=== PATIENT | female | born 1960 | race Two or more races ===

== ENCOUNTER 2017-03-03 11:14 | Inpatient (IN) | payer SELFPAY ==
--- NOTE | 2017-03-03 11:58 | ER Document Report ---
ED Respiratory Problem - General Chief Complaint: Productive Cough Stated Complaint: COUGH Time Seen by Provider: 03/03/17 11:43 Mode of Arrival: Ambulatory Information source: Patient Notes: 56-year-old female presents to ED for cough congestion cold times a week with pain due to coughing. She is alert and oriented speaks in full sentences with respirations even and unlabored. TRAVEL OUTSIDE OF THE [place] IN LAST 30 DAYS: No - HPI Patient complains to provider of: Cough Onset: Last week Duration: Continuous Initiating Event: URI Quality of pain: Achy Severity: Severe Pain Level: 5 Cough: Productive Sputum amount: Small Sputum color: Red Specks Sputum consistency: Mucoid Associated symptoms: Chest pain/discomfort, Congestion, Cough, Fever, PND, Runny nose, Sinus pain/pressure Similar symptoms previously: Yes Recently seen / treated by doctor: No - Related Data Allergies/Adverse Reactions: No Known Allergies Allergy (Verified 03/03/17 11:30) Past Medical History - General Information source: Patient - Social History Smoking Status: Never Smoker Cigarette use (# per day): No Chew tobacco use (# tins/day): No Smoking Education Provided: No Frequency of alcohol use: None Drug Abuse: None Lives with: Family Family History: CAD, Hyperlipidemia, Hypertension Patient has suicidal ideation: No Patient has homicidal ideation: No - Past Medical History Cardiac Medical History: Reports: Hx Hypercholesterolemia Pulmonary Medical History: Reports: None EENT Medical History: Reports: None Neurological Medical History: Reports: None Endocrine Medical History: Reports: None Renal/ Medical History: Reports: Hx Ectopic Malignancy Medical History: Reports: None GI Medical History: Reports: None Musculoskeltal Medical History: Reports None Skin Medical History: Reports None Psychiatric Medical History: Reports: None Traumatic Medical History: Reports: None Past Surgical History: Reports: Hx Section - x1, Hx Gynecologic Surgery - Removal of ectopic Review of Systems - Review of Systems Constitutional: Recent illness EENT: No symptoms reported, Nose discharge, Sinus pressure, Sinus discharge Cardiovascular: No symptoms reported Respiratory: No symptoms reported Gastrointestinal: No symptoms reported Genitourinary: No symptoms reported Female Genitourinary: No symptoms reported Musculoskeletal: No symptoms reported Skin: No symptoms reported Hematologic/Lymphatic: No symptoms reported Neurological/Psychological: No symptoms reported -: Yes All other systems reviewed and negative Physical Exam - Vital signs Vitals: Temp Pulse Resp BP Pulse Ox 97.9 F 106 H 16 100/64 95 03/03/17 11:27 03/03/17 11:27 03/03/17 11:27 03/03/17 11:27 03/03/17 11:27 Interpretation: Normal - General General appearance: Appears well, Alert - HEENT Head: Normocephalic, Atraumatic Eyes: Normal Pupils: PERRL Ears: Normal External canal: Normal Tympanic membrane: Normal Sinus: Frontal, Mastoid, Maxillary, Tenderness Nasal: Purulent discharge, Swelling Mouth/Lips: Normal Mucous membranes: Normal Pharynx: Post nasal drainage Neck: Normal - Respiratory Respiratory status: No respiratory distress Chest status: Tender, Pain with cough Breath sounds: Productive cough. No: Rales, Rhonchi, Stridor, Wheezing Chest palpation: Normal - Cardiovascular Rhythm: Regular Heart sounds: Normal auscultation Murmur: No - Abdominal Inspection: Normal Distension: No distension Bowel sounds: Normal Tenderness: Nontender Organomegaly: No organomegaly - Back Back: Normal, Nontender - Extremities General upper extremity: Normal inspection, Nontender, Normal color, Normal ROM , Normal temperature General lower extremity: Normal inspection, Nontender, Normal color, Normal ROM , Normal temperature, Normal weight bearing. No: Aileen's sign - Neurological Neuro grossly intact: Yes Cognition: Normal Orientation: AAOx4 Oxford Coma Scale Eye Opening: Spontaneous Oxford Coma Scale Verbal: Oriented Terrance Coma Scale Motor: Obeys Commands Terrance Coma Scale Total: 15 Speech: Normal Motor strength normal: LUE, RUE, LLE, RLE Sensory: Normal - Psychological Associated symptoms: Normal affect, Normal mood - Skin Skin Temperature: Warm Skin Moisture: Dry Skin Color: Normal Course - Vital Signs Vital signs: Temp Pulse Resp BP Pulse Ox 97.6 F 102 H 18 96/59 L 95 03/03/17 20:41 03/03/17 20:41 03/03/17 20:41 03/03/17 20:41 03/03/17 20:36 - Laboratory Result Diagrams: 03/03/17 13:19 03/03/17 13:19 Laboratory results interpreted by me: 03/03/17 03/03/17 13:19 13:19 WBC 28.2 H Hgb 11.4 L Hct 34.2 L Seg Neuts % (Manual) 83 H Band Neutrophils % 7 H Lymphocytes % (Manual) 4 L Abs Neuts (Manual) 25.4 H BUN 45 H Creatinine 1.89 H Est GFR ( Amer) 33 L Est GFR (Non-Af Amer) 27 L - Diagnostic Test Radiology reviewed: Image reviewed, Reports reviewed Discharge - Discharge Clinical Impression: Renal insufficiency Pneumonia Qualifiers: Pneumonia type: due to unspecified organism Laterality: left Lung location: upper lobe of lung Qualified Code(s): J18.1 - Lobar pneumonia, unspecified organism Disposition: ADMITTED INPATIENT Admitting Provider: Mikaelaist - [facility] Unit Admitted: Medical Floor - isolation TB
[2017-03-03] MEDS ORDERED: PSEUDOEPHEDRINE HCL 30 MG TABLET PO ONE (12:03)
[2017-03-03] MEDS ORDERED: LORATADINE 10 MG TABLET PO ONE (12:03)
[2017-03-03] MEDS ORDERED: IBUPROFEN 600 MG TABLET PO ONE (12:03)
[2017-03-03] MEDS ORDERED: GUAIFENESIN 600 MG TABLET.SA PO ONE (12:03)
--- NOTE | 2017-03-03 12:57 | RADIOLOGY REPORT (SQ) ---
EXAM DESCRIPTION: CHEST PA/LAT COMPLETED DATE/TIME: 03/03/2017 12:30 pm REASON FOR STUDY: cough congestion COMPARISON: None. TECHNIQUE: Frontal and lateral radiographic views of the chest acquired. NUMBER OF VIEWS: Two view. LIMITATIONS: None. FINDINGS: LUNGS AND PLEURA: Abnormal opacity in the left upper lobe. Differential is pneumonia vers us neoplasm predominantly. Lungs otherwise clear. MEDIASTINUM AND HILAR STRUCTURES: No masses or contour abnormalities. HEART AND VASCULAR STRUCTURES: Heart normal size. No evidence for failure. BONES: No acute findings. HARDWARE: None in the chest. OTHER: No other significant finding. IMPRESSION: Left upper lobe airspace disease. Differential includes pneumonia versus neoplasm. CT pending. TECHNICAL DOCUMENTATION: JOB ID: [id number] [employer]- All Rights Reserved
[2017-03-03 13:48] LABS: HEMATOCRIT 34.2 % (36.0-47.0); HEMOGLOBIN 11.4 g/dL (12.0-15.5); MEAN CORPUSCULAR HEMOGLOBIN 27.6 pg (27.0-33.4); MEAN CORPUSCULAR HGB CONC 33.4 g/dL (32.0-36.0); MEAN CORPUSCULAR VOLUME 83 fl (80-97); RED BLOOD COUNT 4.14 10^6/uL (3.72-5.28); RED CELL DISTRIBUTION WIDTH 13.8 % (11.5-14.0); WHITE BLOOD COUNT 28.2 10^3/uL (4.0-10.5)
[2017-03-03 13:57] LABS: ANION GAP 17 (5-19); BLOOD UREA NITROGEN 45 mg/dL (7-20); CALCIUM 9.2 mg/dL (8.4-10.2); CARBON DIOXIDE 24 mmol/L (22-30); CHLORIDE 100 mmol/L (98-107); CREATININE RESULT 1.89 mg/dL (0.52-1.25); GLUCOSE 104 mg/dL (75-110); SODIUM 141.2 mmol/L (137-145)
[2017-03-03 14:05] LABS: BAND NEUTROPHILS % (MANUAL) 7 % (3-5); BASOPHILS % (MANUAL) 0 % (0-2); EOSINOPHILS % (MANUAL) 1 % (0-6); LYMPHOCYTES % (MANUAL) 4 % (13-45); TOTAL CELLS COUNTED 100
[2017-03-03 14:06] LABS: TOXIC GRANULATION SLIGHT
[2017-03-03] MEDS ORDERED: NORMAL SALINE 1000 ML 1,000 ML IV ONE (14:10)
--- NOTE | 2017-03-03 15:11 | RADIOLOGY REPORT (SQ) ---
EXAM DESCRIPTION: CTA CHEST COMPLETED DATE/TIME: 03/03/2017 2:51 pm REASON FOR STUDY: left chest pain COMPARISON: Radiographs. TECHNIQUE: CT scan of the chest performed using helical scanning technique with dynamic intravenous contrast injection. Images reviewed with lung, soft tissue and bone windows. Reconstructed coronal and sagittal MPR images reviewed. Additional 3 dimensional post-processing performed to develop Maximal Intensity Projection images (CA P). All images stored on PACS. All CT scanners at this facility use dose modulation, iterative reconstruction, and/or weight based d osing when appropriate to reduce radiation dose to as low as reasonably achievable (ALARA). [facility]: Dose Right [facility]: CareDose [facility]: Dose Right [facility]: Teradose 4D [facility]: BuyHappy CONTRAST TYPE AND DOSE: contrast/concentration: Isovue 370.00 mg/ml; Total Contrast Delivered: 67.0 ml; Total Saline Delivered: 80.0 ml Contrast bolus optimized for the pulmonary arteries. Not diagnostic for the aorta. RENAL FUNCTION: Not provided. RADIATION DOSE: CT Rad equipment meets quality standard of care and radiation dose reduction techniq ues were employed. CTDIvol: 14.3 - 19.8 mGy. DLP: 553 mGy-cm. . LIMITATIONS: None. FINDINGS: LUNGS AND PLEURA: Extensive consolidation left upper lobe. No gross central obstructing m ass. Lungs otherwise relatively clear. AORTA AND GREAT VESSELS: No aneurysm. Contrast bolus not optimized for the aorta. HEART: No pericardial effusion. No significant coronary artery calcifications. PULMONARY ARTERIES: No emboli visualized in the main pulmonary arteries or the segmental branches. HILAR AND MEDIASTINAL STRUCTURES: Small mediastinal nodes, some of which are calcified. This consist ent with previous granulomatous disease. HARDWARE: None in the chest. UPPER ABDOMEN: No significant findings. Limited exam. THYROID AND OTHER SOFT TISSUES: No masses. No adenopathy. BONES: No acute or significant finding. 3D MIPS: Confirm above findings. OTHER: No other significant finding. IMPRESSION: 1. Extensive left upper lobe consolidation, apparent pneumonia. This should be followed to radiographic clearance. 2. Evidence of previous granulomatous disease. 3. No pulmonary embolus. COMMENT: Quality ID # [id number]: Final reports with documentation of one or more dose reduction techniques (e.g., Automated exposure control, adjustment of the mA and/or kV according to patient size, use of iterative reconstruction technique) TECHNICAL DOCUMENTATION: JOB ID: [id number] [facility] [employer]- All Rights Reserved
[2017-03-03] MEDS ORDERED: LEVOFLOXACIN 750 MG/D5W RTU 750 MG/150 ML RTUPB IV ONE (15:23)
[2017-03-03] MEDS ORDERED: ACETAMINOPHEN 325 MG TABLET PO PRN (17:13)
[2017-03-03] MEDS ORDERED: ONDANSETRON HCL INJ/PF 4 MG/2 ML SDV IV PRN (17:13)
[2017-03-03] MEDS ORDERED: 1/2 NORMAL SALINE 1,000 ML IV PRN (17:13)
[2017-03-03] MEDS ORDERED: TEMAZEPAM 15 MG CAPSULE PO PRN (17:13)
[2017-03-03] MEDS ORDERED: MAG HYDROX/AL HYDROX/SIMETH SUSP 30 ML UDCUP PO PRN (17:13)
--- NOTE | 2017-03-03 17:13 | PDOC H&P ---
History of Present Illness Admission Date/PCP: 03/03/17 16:39; the patient sees a provider named Kamilah in [facility] Patient complains of: Severe cough for 10 days History of Present Illness: ROLA URIBE is a 56 year old female who was brought in by her daughter today secondary to coughing for 10 days. Yesterday, the patient coughed up blood mixed with mucus. She estimated that the blood was approximately one half of a teaspoon. The blood was bright red. The patient has been feeling feverish with chills. She has not checked her temperature, however. She has felt that she may have lost a little bit of weight over the last couple of days but does not feel that she has had any any severe weight loss. 2 days ago the patient had one episode of vomiting and one episode of diarrhea. She has not had any additional episodes but she does have soft stools. She states that she is hungry and she is able to eat solid foods and drink liquids. Other significant review of systems is that she is getting up a lot at night to urinate. She has significant left sided anterior chest pain and left-sided posterior chest pain which is worse with deep inspiration and cough. The patient does not speak Japanese. She was born in [place]. The patient has been in contact with people with tuberculosis, but not recently. Past Medical History Cardiac Medical History: Reports: Hyperlipidema Pulmonary Medical History: Reports: None EENT Medical History: Reports: None Neurological Medical History: Reports: None Endocrine Medical History: Reports: None Malignancy Medical History: Reports: None GI Medical History: Reports: None Musculoskeltal Medical History: Reports: None Skin Medical History: Reports: None Psychiatric Medical History: Reports: None Traumatic Medical History: Reports: None Past Surgical History Past Surgical History: The patient had surgery for an ectopic many years ago. Past Surgical History: Reports: Section - x1 Social History Lives with: Family Smoking Status: Former Smoker - Patient smoked 1/2-1 pack per day for 35 years but quit 4 years ago. Frequency of Alcohol Use: Occasional - The patient used to drink on a regular basis when she was smoking, but has not been drinking heavily since she quit smoking. - Advance Directive Resuscitation Status: Full Code Surrogate healthcare decision maker:: The patient's surrogate decision maker is her daughter Eun Uribe. She can be reached at area code . Family History Family History: CAD, Hyperlipidemia, Hypertension Family History: Paternal grandmother of cancer and her mother of lung disease. The daughter could not be more specific regarding what type of lung disease but she does not think it was cancer. Parental Family History Reviewed: Yes Children Family History Reviewed: Yes Sibling(s) Family History Reviewed.: NA Medication/Allergy Home Medications: No Home Medications 03/27/11 Allergies/Adverse Reactions: No Known Allergies Allergy (Verified 03/03/17 11:30) Review of Systems Constitutional: PRESENT: chills, fatigue, fever(s), weight loss Eyes: ABSENT: visual disturbances Ears: ABSENT: hearing changes Nose, Mouth, and Throat: ABSENT: as per HPI, headache(s), mouth pain, sore throat, vertigo, other Breasts: ABSENT: as per HPI, other Cardiovascular: PRESENT: chest pain Respiratory: PRESENT: cough, hemoptysis, sputum Gastrointestinal: PRESENT: diarrhea, vomiting Genitourinary: ABSENT: dysuria, hematuria Musculoskeletal: ABSENT: joint swelling Integumentary: ABSENT: rash, wounds Neurological: ABSENT: abnormal gait, abnormal speech, confusion, dizziness, focal weakness, syncope Psychiatric: ABSENT: anxiety, depression, homidical ideation, suicidal ideation Endocrine: ABSENT: cold intolerance, heat intolerance, polydipsia, polyuria Hematologic/Lymphatic: ABSENT: easy bleeding, easy bruising Allergic/Immunologic: ABSENT: as per HPI, seasonal rhinorrhea, other Physical Exam Vital Signs: Temp Pulse Resp BP Pulse Ox 97.9 F 106 H 16 100/64 95 03/03/17 11:27 03/03/17 11:27 03/03/17 11:27 03/03/17 11:27 03/03/17 11:27 Additional comments: The patient appears to be healthy. She does not appear to be chronically ill. At the present time she is nontoxic and not in any distress. Her facial appearance is normal. Cranial nerves II through XII are intact. Her trachea is midline. Thyroid is nonpalpable. She does not have any JVD present. She does not have any cervical or supraclavicular lymphadenopathy. Lips and mucous membranes are moist. Dentition is good. The patient's lungs show occasional wheezes in the left lung, but, are surprisingly clear. She does not have any rhonchi present. There is no dullness to percussion. The cardiac exam is regular. I do not appreciate any murmurs, gallops or rubs. The abdomen is soft and flat. There is no tympany. There is no guarding or rebound present. There are no hernias or masses present. Bowel sounds are present and are normoactive. The patient's lower extremities are warm to touch. She does not have any pitting edema present. Skin is warm dry and intact without any lesions or rashes. Results Impressions: Chest X-Ray 03/03/17 11:58 IMPRESSION: Left upper lobe airspace disease. Differential includes pneumonia versus neoplasm. CT pending. Chest/Abdomen CTA 03/03/17 12:33 IMPRESSION: 1. Extensive left upper lobe consolidation, apparent pneumonia. This should be followed to radiographic clearance. 2. Evidence of previous granulomatous disease. 3. No pulmonary embolus. Assessment & Plan - Diagnosis (1) Pneumonia Qualifiers: Pneumonia type: due to unspecified organism Laterality: left Lung location: upper lobe of lung Qualified Code(s): J18.1 - Lobar pneumonia, unspecified organism Is this a current diagnosis for this admission?: Yes Plan: The patient will require inpatient admission. She meets criteria for severe community-acquired pneumonia. I will treat her with Rocephin and azithromycin. She will be monitored closely. She will need to be in an isolation room. She will need sputum's for initial culture and smears for AFB with culture. This pneumonia will need to be followed to resolution. Certainly, this could be a cancerous process with a postobstructive pneumonia. (2) Acute renal failure Is this a current diagnosis for this admission?: Yes Plan: Patient did receive IV contrast in the emergency department. She is being hydrated. IV fluids will need to be continued and her renal function and electrolytes will need to be followed closely. (3) Hemoptysis Is this a current diagnosis for this admission?: Yes Plan: The patient will need to be placed in isolation. Sputums will be sent for AFB smear and culture. In all likelihood the hemoptysis is from a necrotizing infection and/or malignancy. (4) Granulomatous disease Is this a current diagnosis for this admission?: Yes Plan: The patient has evidence of old granulomatous disease on chest x-ray and CT scan. Certainly, her presentation is not consistent with reactivation TV due to the size of the lesion on the x-ray and CT scan, but, we need to be prudent. The old granulomatous disease could also be from histoplasmosis or another fungal infection. (5) Hyperlipidemia Is this a current diagnosis for this admission?: Yes Plan: Continue outpatient medications. - Time Time Spent: 50 to 70 Minutes - Inpatient Certification Medical Necessity: Need For IV Fluids, Need for IV Antibiotics, Risk of Complication if Not Cared For in Hospital, Other - The patient needs to be ruled out for tuberculosis. Until this is done she should be considered a risk to the public.
[2017-03-03] MEDS ORDERED: FAMOTIDINE INJ/PF 20 MG/2 ML SDV IV ONE (22:00)
[2017-03-03] MEDS: OXYCODONE-ACETAMINOPHEN 5-325 MG TABLET PO PRN (23:35)
[2017-03-04] MEDS: PROMETHAZINE HCL 25 MG TABLET PO PRN (04:21)
[2017-03-04 06:24] LABS: HEMOGLOBIN 9.9 g/dL (12.0-15.5); HGB HCT DIFFERENCE 0.7; MEAN CORPUSCULAR HEMOGLOBIN 28.1 pg (27.0-33.4); MEAN CORPUSCULAR HGB CONC 34.1 g/dL (32.0-36.0); MEAN CORPUSCULAR VOLUME 82 fl (80-97); RED BLOOD COUNT 3.52 10^6/uL (3.72-5.28); RED CELL DISTRIBUTION WIDTH 13.7 % (11.5-14.0); WHITE BLOOD COUNT 22.9 10^3/uL (4.0-10.5)
[2017-03-04 06:27] LABS: PROTHROMBIN TIME 15.4 SEC (11.4-15.4)
[2017-03-04 06:28] LABS: PARTIAL THROMBOPLASTIN TIME 45.1 SEC (23.5-35.8)
[2017-03-04 06:49] LABS: ALANINE AMINOTRANSFERASE 29 U/L (9-52); ALBUMIN 2.6 g/dL (3.5-5.0); ALKALINE PHOSPHATASE 113 U/L (38-126); ANION GAP 14 (5-19); ASPARTATE AMINO TRANSFERASE 19 U/L (14-36); BILIRUBIN,DIRECT 0.4 mg/dL (0.0-0.4); BILIRUBIN,TOTAL 0.4 mg/dL (0.2-1.3); BLOOD UREA NITROGEN 32 mg/dL (7-20); CALCIUM 8.7 mg/dL (8.4-10.2); CARBON DIOXIDE 21 mmol/L (22-30); CHLORIDE 107 mmol/L (98-107); CREATININE RESULT 1.08 mg/dL (0.52-1.25); GLUCOSE 102 mg/dL (75-110); POTASSIUM 3.5 mmol/L (3.6-5.0); SODIUM 142.1 mmol/L (137-145); TOTAL PROTEIN 5.3 g/dL (6.3-8.2)
[2017-03-04 07:16] LABS: BAND NEUTROPHILS % (MANUAL) 4 % (3-5); BASOPHILS % (MANUAL) 0 % (0-2); EOSINOPHILS % (MANUAL) 3 % (0-6); LYMPHOCYTES % (MANUAL) 3 % (13-45); TOTAL CELLS COUNTED 100
[2017-03-04 07:19] LABS: BURR CELLS 1+; OVALOCYTES 1+; POIKILOCYTOSIS 1+
[2017-03-04] MEDS ORDERED: POTASSIUM CHLORIDE 10 MEQ TABLET.SA PO ONE ×2 (07:26→10:45)
[2017-03-04] MEDS: OXYCODONE-ACETAMINOPHEN 5-325 MG TABLET PO PRN ×2 (11:15→18:00)
[2017-03-04] MEDS: FAMOTIDINE INJ/PF 20 MG/2 ML SDV IV SCH ×2 (11:15→21:33)
[2017-03-04] MEDS: AZITHROMYCIN 500 MG in DEXTROSE 5%-WATER 250 ML IV SCH (11:20)
--- NOTE | 2017-03-04 11:21 | PDOC PROGRESS REPORT ---
Subjective Progress Note for:: 03/04/17 Subjective:: The patient is a 56-year-old female who presented to the hospital with a 10 day history of cough associated with fevers and chills. She has had hemoptysis intermittently. The hemoptysis appears to be scant but it is bright red. The patient had significant leukocytosis upon admission; she also had significant renal failure on admission. The patient had a CT scan in the emergency department as well as a chest x-ray. Both demonstrate a severe and extensive left upper lobe pneumonia. The infiltrate appears to involve the lateral aspect of the lung tissue but does not appear to be invading into the chest wall. The patient is from [facility]. She does have risk factors for tuberculosis. She is in isolation. However, her clinical picture is most consistent with bacterial pneumonia. I am treating her for severe community- acquired pneumonia. However, she may have an underlying malignancy. She will need her CT scan repeated after therapy in approximately 4-6 weeks to ensure that she does not have an underlying malignancy in the lung. Patient does not speak Telugu. Physical Exam Vital Signs: Temp Pulse Resp BP Pulse Ox 97.5 F 88 16 94/62 L 96 03/04/17 08:04 03/04/17 08:04 03/04/17 08:04 03/04/17 08:04 03/04/17 08:04 Intake & Output 03/03/17 03/04/17 03/05/17 06:59 06:59 06:59 Intake Total 2648 Output Total 300 Balance 2348 Weight 72.5 kg Additional comments: The patient appears to be her stated age. She does not appear to be toxic. She is noted to have a cough. This is not productive. It was very difficult to understand her but she is still complaining of anterior and left-sided chest pain. Her oropharynx is benign. Her lungs demonstrate crackles throughout the left lung wang both anteriorly and posteriorly. Breath sounds on the right are clear. Cardiac exam is regular without murmurs, gallops or rubs. The abdomen is soft and flat. Bowel sounds are present. She does not have any guarding or rebound noted. There are no hernias or masses present. The lower extremities are warm to touch without edema. Skin is warm, dry and intact. Results Laboratory Results: 03/04/17 05:58 03/04/17 05:58 03/04/17 03/04/17 05:58 05:58 WBC 22.9 H RBC 3.52 L Hgb 9.9 L Hct 29.0 L MCV 82 MCH 28.1 MCHC 34.1 RDW 13.7 Plt Count 333 Seg Neutrophils % Not Reportable Lymphocytes % Not Reportable Monocytes % Not Reportable Eosinophils % Not Reportable Basophils % Not Reportable Absolute Neutrophils Not Reportable Absolute Lymphocytes Not Reportable Absolute Monocytes Not Reportable Absolute Eosinophils Not Reportable Absolute Basophils Not Reportable Sodium 142.1 Potassium 3.5 L Chloride 107 Carbon Dioxide 21 L Anion Gap 14 BUN 32 H Creatinine 1.08 Est GFR ( Amer) > 60 Est GFR (Non-Af Amer) 52 L Glucose 102 Calcium 8.7 Phosphorus 3.0 Magnesium 2.0 Total Bilirubin 0.4 AST 19 ALT 29 Alkaline Phosphatase 113 Total Protein 5.3 L Albumin 2.6 L Impressions: Chest X-Ray 03/03/17 11:58 IMPRESSION: Left upper lobe airspace disease. Differential includes pneumonia versus neoplasm. CT pending. Chest/Abdomen CTA 03/03/17 12:33 IMPRESSION: 1. Extensive left upper lobe consolidation, apparent pneumonia. This should be followed to radiographic clearance. 2. Evidence of previous granulomatous disease. 3. No pulmonary embolus. Assessment & Plan - Diagnosis (1) Pneumonia Qualifiers: Pneumonia type: due to unspecified organism Laterality: left Lung location: upper lobe of lung Qualified Code(s): J18.1 - Lobar pneumonia, unspecified organism Is this a current diagnosis for this admission?: Yes Plan: Continue Rocephin and azithromycin for typical community-acquired organisms including gram positives and atypicals. Patient is not having fevers. Her leukocytosis is much improved. This could be in part due to dilution, but overall she appears to be improving and I do not feel we need to change antibiotics at this time. Sputum culture demonstrates 2+ gram-positive cocci in pairs. I suspect that the patient has severe pneumococcus pneumonia. Legionella urinary antigen is pending. Mycoplasma titers are pending. (2) Acute renal failure Is this a current diagnosis for this admission?: Yes Plan: Patient did receive IV contrast in the emergency department. Luckily, her renal function is improved today, but, she is still at risk for the development of renal failure from contrast. I will make sure labs are repeated again tomorrow. I will continue IV fluids for another day but decrease the rate. (3) Hemoptysis Is this a current diagnosis for this admission?: Yes Plan: The patient was placed in isolation. Sputums are being sent for AFB smear and culture. In all likelihood the hemoptysis is from a necrotizing infection and/ or malignancy. Patient is receiving cough syrup with codeine. (4) Granulomatous disease Is this a current diagnosis for this admission?: Yes Plan: The patient has evidence of old granulomatous disease on chest x-ray and CT scan. Certainly, her presentation is not consistent with reactivation TV due to the size of the lesion on the x-ray and CT scan, but, we need to be prudent. The old granulomatous disease could also be from histoplasmosis or another fungal infection. Continue TB rule out (5) Hyperlipidemia Is this a current diagnosis for this admission?: Yes Plan: The patient told me that she takes TriCor. Unfortunately, we have not been able to verify her home medications. Currently, she is not receiving therapy. (6) Thrombocytopenia Is this a current diagnosis for this admission?: Yes Plan: The patient is noted to have mild thrombocytopenia. She is not receiving heparin or Lovenox secondary to the hemoptysis. Her thrombocytopenia is likely associated with her acute illness. This will need to be monitored. - Time Time Spent with patient: 25-34 minutes - Inpatient Certification Medical Necessity: Significant Comorbidiites Make Outpatient Treatment Too Risky , Need Close Monitoring Due to Risk of Patient Decompensation, Need for Pain Control, Need for IV Antibiotics, Risk of Diagnosis Which Will Require Inpatient Eval/Care/Monitoring
[2017-03-04] MEDS ORDERED: 1/2 NORMAL SALINE 1,000 ML IV PRN (11:24)
[2017-03-04] MEDS ORDERED: CEFTRIAXONE 1 GM/D5W RTU 1 GM/50 ML RTUPB IV SCH (12:00)
[2017-03-04] MEDS: CEFTRIAXONE 1 GM/D5W RTU 1 GM/50 ML RTUPB IV SCH (12:45)
[2017-03-04] MEDS: GUAIFENESIN/CODEINE PHOS 100-10 MG/ 5 ML UDC PO PRN (20:47)
[2017-03-05] MEDS: GUAIFENESIN/CODEINE PHOS 100-10 MG/ 5 ML UDC PO PRN ×3 (03:47→23:58)
[2017-03-05 07:01] LABS: HEMATOCRIT 31.7 % (36.0-47.0); HEMOGLOBIN 10.4 g/dL (12.0-15.5); HGB HCT DIFFERENCE -0.5; MEAN CORPUSCULAR HEMOGLOBIN 27.4 pg (27.0-33.4); MEAN CORPUSCULAR HGB CONC 32.9 g/dL (32.0-36.0); MEAN CORPUSCULAR VOLUME 83 fl (80-97); RED BLOOD COUNT 3.81 10^6/uL (3.72-5.28); RED CELL DISTRIBUTION WIDTH 14.3 % (11.5-14.0); WHITE BLOOD COUNT 24.3 10^3/uL (4.0-10.5)
[2017-03-05 07:28] LABS: BLOOD UREA NITROGEN 14 mg/dL (7-20); CALCIUM 8.5 mg/dL (8.4-10.2); CARBON DIOXIDE 24 mmol/L (22-30); CREATININE RESULT 0.88 mg/dL (0.52-1.25); GLUCOSE 94 mg/dL (75-110); MAGNESIUM 1.9 mg/dL (1.6-2.3); POTASSIUM 4.2 mmol/L (3.6-5.0); SODIUM 141.2 mmol/L (137-145)
[2017-03-05 07:30] LABS: ANION GAP 13 (5-19); CHLORIDE 104 mmol/L (98-107)
[2017-03-05 07:48] LABS: BAND NEUTROPHILS % (MANUAL) 4 % (3-5); BASOPHILS % (MANUAL) 0 % (0-2); EOSINOPHILS % (MANUAL) 0 % (0-6); LYMPHOCYTES % (MANUAL) 9 % (13-45); PLATELET CLUMPS PRESENT; POLYCHROMASIA SLIGHT; TOTAL CELLS COUNTED 100; TOXIC GRANULATION 2+; TOXIC VACUOLATION PRESENT
[2017-03-05] MEDS: AZITHROMYCIN 500 MG in DEXTROSE 5%-WATER 250 ML IV SCH (09:14)
[2017-03-05] MEDS: FAMOTIDINE INJ/PF 20 MG/2 ML SDV IV SCH ×2 (09:14→23:57)
[2017-03-05] MEDS: OXYCODONE-ACETAMINOPHEN 5-325 MG TABLET PO PRN ×4 (09:15→23:58)
[2017-03-05] MEDS: CEFTRIAXONE 1 GM/D5W RTU 1 GM/50 ML RTUPB IV SCH (12:47)
[2017-03-05] MEDS ORDERED: MORPHINE SULFATE 10 MG/ML INJ IV ONE (14:01)
[2017-03-05] MEDS: KETOROLAC TROMETHAMINE INJ/PF 30 MG/1 ML SDV IV PRN (14:07)
--- NOTE | 2017-03-05 14:11 | PDOC PROGRESS REPORT ---
Subjective Progress Note for:: 03/05/17 Subjective:: Patient is seen on rounds. She is sitting on the side of the bed coughing.The patient is a 56-year-old female who presented to the hospital with a 10 day history of cough associated with fevers and chills. She has had hemoptysis intermittently. The hemoptysis appears to be scant but it is bright red. The patient had significant leukocytosis upon admission; she also had significant renal failure on admission. The patient is from [facility]. She does have risk factors for tuberculosis. She is in isolation. However, her clinical picture is most consistent with bacterial pneumonia. I am treating her for severe community-acquired pneumonia. However, she may have an underlying malignancy. She will need her CT scan repeated after therapy in approximately 4-6 weeks to ensure that she does not have an underlying malignancy in the lung. Patient does not speak Hebrew.Her vitals have been stable and nursing reports no issues overnight. She denies any dyspnea. She does appear to splint her respirations on the left due to pain however. Physical Exam Vital Signs: Temp Pulse Resp BP Pulse Ox 98.4 F 117 H 18 115/83 93 03/05/17 11:27 03/05/17 11:27 03/05/17 11:27 03/05/17 11:27 03/05/17 11:27 Intake & Output 03/04/17 03/05/17 03/06/17 06:59 06:59 06:59 Intake Total 2648 2375 222 Output Total 300 Balance 2348 2375 222 Weight 72.5 kg 74.2 kg 74.2 kg General appearance: PRESENT: no acute distress, well-developed, well-nourished Head exam: PRESENT: atraumatic, normocephalic Eye exam: PRESENT: conjunctiva pink, EOMI, PERRLA. ABSENT: scleral icterus Ear exam: PRESENT: bleeding Mouth exam: PRESENT: moist, tongue midline Neck exam: ABSENT: carotid bruit, JVD, lymphadenopathy, thyromegaly Respiratory exam: PRESENT: accessory muscle use, chest wall tenderness, decreased breath sounds, rhonchi, unlabored Cardiovascular exam: PRESENT: RRR. ABSENT: diastolic murmur, rubs, systolic murmur Pulses: PRESENT: normal dorsalis pedis pul Vascular exam: PRESENT: normal capillary refill GI/Abdominal exam: PRESENT: normal bowel sounds, soft. ABSENT: distended, guarding, mass, organolmegaly, rebound, tenderness Rectal exam: PRESENT: deferred Extremities exam: PRESENT: full ROM. ABSENT: calf tenderness, clubbing, pedal edema Musculoskeletal exam: PRESENT: ambulatory, full ROM Neurological exam: PRESENT: alert, awake, oriented to person, oriented to place , oriented to time, oriented to situation, CN II-XII grossly intact. ABSENT: motor sensory deficit Psychiatric exam: PRESENT: appropriate affect, normal mood. ABSENT: homicidal ideation, suicidal ideation Skin exam: PRESENT: dry, intact, warm. ABSENT: cyanosis, rash Results Laboratory Results: 03/05/17 06:47 03/05/17 06:47 03/05/17 03/05/17 06:47 06:47 WBC 24.3 H RBC 3.81 Hgb 10.4 L Hct 31.7 L MCV 83 MCH 27.4 MCHC 32.9 RDW 14.3 H Plt Count 390 Seg Neutrophils % Not Reportable Lymphocytes % Not Reportable Monocytes % Not Reportable Eosinophils % Not Reportable Basophils % Not Reportable Absolute Neutrophils Not Reportable Absolute Lymphocytes Not Reportable Absolute Monocytes Not Reportable Absolute Eosinophils Not Reportable Absolute Basophils Not Reportable Sodium 141.2 Potassium 4.2 Chloride 104 Carbon Dioxide 24 Anion Gap 13 BUN 14 Creatinine 0.88 Est GFR ( Amer) > 60 Est GFR (Non-Af Amer) > 60 Glucose 94 Calcium 8.5 Magnesium 1.9 Impressions: Chest X-Ray 03/03/17 11:58 IMPRESSION: Left upper lobe airspace disease. Differential includes pneumonia versus neoplasm. CT pending. Chest/Abdomen CTA 03/03/17 12:33 IMPRESSION: 1. Extensive left upper lobe consolidation, apparent pneumonia. This should be followed to radiographic clearance. 2. Evidence of previous granulomatous disease. 3. No pulmonary embolus. Assessment & Plan - Diagnosis (1) Acute renal failure Qualifiers: Acute renal failure type: with acute renal cortical necrosis Qualified Code (s): N17.1 - Acute kidney failure with acute cortical necrosis Is this a current diagnosis for this admission?: Yes (2) Granulomatous disease Is this a current diagnosis for this admission?: Yes (3) Hemoptysis Is this a current diagnosis for this admission?: Yes (4) Hyperlipidemia Qualifiers: Hyperlipidemia type: unspecified Qualified Code(s): E78.5 - Hyperlipidemia , unspecified Is this a current diagnosis for this admission?: Yes (5) Pneumonia Qualifiers: Pneumonia type: due to unspecified organism Laterality: left Lung location: upper lobe of lung Qualified Code(s): J18.1 - Lobar pneumonia, unspecified organism Is this a current diagnosis for this admission?: Yes (6) Renal insufficiency Is this a current diagnosis for this admission?: Yes Plan: BUN/Cr has normalized, most likely secondary from dehydration (7) Thrombocytopenia Is this a current diagnosis for this admission?: Yes - Time Time Spent with patient: 25-34 minutes Critical Time spent with patient: 15-24 minutes Medications reviewed and adjusted accordingly: Yes
[2017-03-05 14:43] LABS: ARTERIAL BLOOD O2 SATURATION 93.6 % (94-98)
[2017-03-05] MEDS: IPRATROPIUM/ALBUTEROL 0.5-2.5 MG/3 ML AMPUL NEB SCH (17:40)
[2017-03-05] MEDS: ACETYLCYSTEINE 20% SOLN 800 MG/4 ML VIAL.NEB NEB SCH (20:22)
[2017-03-05] MEDS: IPRATROPIUM/ALBUTEROL 0.5-2.5 MG/3 ML AMPUL NEB PRN (20:22)
[2017-03-06] MEDS: IPRATROPIUM/ALBUTEROL 0.5-2.5 MG/3 ML AMPUL NEB SCH ×3 (00:02→16:52)
[2017-03-06] MEDS: KETOROLAC TROMETHAMINE INJ/PF 30 MG/1 ML SDV IV PRN ×2 (03:58→18:38)
[2017-03-06] MEDS: ACETYLCYSTEINE 20% SOLN 800 MG/4 ML VIAL.NEB NEB SCH ×2 (08:40→21:01)
[2017-03-06] MEDS: FAMOTIDINE INJ/PF 20 MG/2 ML SDV IV SCH ×2 (11:07→21:15)
[2017-03-06] MEDS ORDERED: OXYCODONE HCL IR 5 MG TABLET PO STA (12:27)
[2017-03-06] MEDS: OXYCODONE-ACETAMINOPHEN 5-325 MG TABLET PO PRN ×2 (12:39→21:10)
[2017-03-06] MEDS ORDERED: TUBERCULIN,PURIF.PROT.DERIV. 5 TU/0.1 ML TEST 1 ML VIAL ID ONE (13:30)
[2017-03-06] MEDS: AZITHROMYCIN 500 MG in DEXTROSE 5%-WATER 250 ML IV SCH (14:00)
[2017-03-06] MEDS: CEFTRIAXONE 1 GM/D5W RTU 1 GM/50 ML RTUPB IV SCH (14:57)
--- NOTE | 2017-03-06 15:40 | RADIOLOGY REPORT (SQ) ---
EXAM DESCRIPTION: PICC INSERTION; FLUORO/CV PLACEMENT; U/S GUIDE FOR VASCULAR ACCESS COMPLETED DATE/TIME: 03/06/2017 3:24 pm REASON FOR STUDY: poor access; POOR IV ACCESS; IV ACCESS COMPARISON: CT chest 03/03/2017 FLUOROSCOPY TIME: 22 seconds 1 digital chest radiograph and and 1 ultrasound image saved to PACS. TECHNIQUE: Fluoroscopic and ultrasound guided PICC placement. LIMITATIONS: None. PROCEDURE: After written consent and assessment were obtained, the patient was brought into the fluo roscopy room and place supine on the table. Ultrasound was used on the patient's left arm for PICC a ccess. The left arm was prepped and draped in a sterile fashion along with the ultrasound probe. The entry site was anesthetized with 1% lidocaine. A 21 gauge 7 cm needle was advanced through the skin a nd into the basilic vein under live ultrasound guidance. An ultrasound image was saved to PACS confi rming access site. A .018 guide wire was then inserted through the needle and into the venous system . The needle was the removed and an 11 blade scalpel was used to make a 1cm skin incision. A 5 fr pe el-away sheath was advanced over the wire and into the venous system. A measurement was then made usi ng the existing wire and live fluoroscopic guidance. The wire was then removed and the trimmed. The P ICC was advanced through the peel-away sheath and into the venous system. The peel-away sheath was re moved and the catheter was adhered to the patients arm with a stat lock. The catheter was then aspira andres and flushed and a sterile bandage was placed over the access site. A fluoroscopic spot image was saved to PACS confirming the catheter tip within the superior vena cava. IMPRESSION: SUCCESSFUL PLACEMENT OF A 5 FR DUAL LUMEN 39 CM PICC IN THE LEFT BASILIC VEIN. COMMENT: Patient medication list reviewed: Yes- Quality ID# [id number]:Eligible professional attests to doc umenting in the medical record they obtained, updated, or reviewed the patient's current medications. . Quality ID 145: Final reports for procedures using fluoroscopy that document radiation exposure aleksey ronnie, or exposure time and number of fluorographic images (if radiation exposure indices are not avail able) Quality ID #[id number]: The patient was prepped and draped using maximum sterile barrier technique including cap, mask, sterile gown, sterile gloves, a large sterile sheet, hand hygiene, and 2% Chlorhexidine fo r cutaneous antisepsis. When ultrasound is used, sterile ultrasound techniques are followed requiring sterile gel and sterile probes. TECHNICAL DOCUMENTATION: JOB ID: [id number] [email or web address]- All Rights Reserved
--- NOTE | 2017-03-06 16:20 | PDOC PROGRESS REPORT ---
Subjective Progress Note for:: 03/06/17 Subjective:: Patient presenting with hemoptysis and pneumonia. Currently on antibiotics. Patient IV not working. Patient agreed to picc line. Please not that patient is italian speaking but does appear to understand Kyrgyz. She complains of left sided back and flank pain however this is chronic in nature. Patient cannot take a deep breathe due to the left sided pain. Reason For Visit: PNEUMONIA,AND HEMOPTYSIS Physical Exam Vital Signs: Temp Pulse Resp BP Pulse Ox 98.1 F 117 H 20 131/80 H 94 03/06/17 12:00 03/06/17 12:00 03/06/17 12:00 03/06/17 12:00 03/06/17 12:00 Intake & Output 03/05/17 03/06/17 03/07/17 06:59 06:59 06:59 Intake Total 2375 1449 Balance 2375 1449 Weight 74.2 kg 76.4 kg General appearance: PRESENT: no acute distress, obese Head exam: PRESENT: normocephalic Eye exam: PRESENT: EOMI. ABSENT: scleral icterus Ear exam: PRESENT: normal external ear exam Mouth exam: PRESENT: moist, tongue midline Neck exam: ABSENT: carotid bruit, JVD, lymphadenopathy, thyromegaly Respiratory exam: PRESENT: clear to auscultation namrata, decreased breath sounds - left base no breath sounds heard.. ABSENT: rales, rhonchi, wheezes Cardiovascular exam: PRESENT: RRR. ABSENT: diastolic murmur, rubs, systolic murmur Pulses: PRESENT: normal dorsalis pedis pul Vascular exam: PRESENT: normal capillary refill GI/Abdominal exam: PRESENT: normal bowel sounds, soft. ABSENT: distended, guarding, mass, organolmegaly, rebound, tenderness Rectal exam: PRESENT: deferred Extremities exam: PRESENT: full ROM. ABSENT: calf tenderness, clubbing, pedal edema Neurological exam: PRESENT: alert, awake, oriented to person, oriented to place , oriented to time, oriented to situation, CN II-XII grossly intact. ABSENT: motor sensory deficit Psychiatric exam: PRESENT: appropriate affect, normal mood. ABSENT: homicidal ideation, suicidal ideation Skin exam: PRESENT: dry, intact, warm. ABSENT: cyanosis, rash Results Laboratory Results: 03/05/17 06:47 03/05/17 06:47 03/05/17 14:25 Carbonic Acid 1.17 HCO3/H2CO3 Ratio 20:1 ABG pH 7.40 ABG pCO2 38.8 ABG pO2 67.8 L ABG HCO3 23.5 ABG O2 Saturation 93.6 L ABG Base Excess -1.0 FiO2 2L Impressions: Chest X-Ray 03/03/17 11:58 IMPRESSION: Left upper lobe airspace disease. Differential includes pneumonia versus neoplasm. CT pending. Chest/Abdomen CTA 03/03/17 12:33 IMPRESSION: 1. Extensive left upper lobe consolidation, apparent pneumonia. This should be followed to radiographic clearance. 2. Evidence of previous granulomatous disease. 3. No pulmonary embolus. Assessment & Plan - Diagnosis (1) Acute renal failure Qualifiers: Acute renal failure type: with acute renal cortical necrosis Qualified Code (s): N17.1 - Acute kidney failure with acute cortical necrosis Is this a current diagnosis for this admission?: Yes Plan: Most likely due to intravascular depletion. Creatinine was 1.89 on admission and down to 0.88. (2) Granulomatous disease Is this a current diagnosis for this admission?: Yes Plan: Patient is being worked up for possible TB. Pulmonary consulted. (3) Hemoptysis Is this a current diagnosis for this admission?: Yes Plan: Possibly secondary to coughing, but patient is being worked up for TB. There is also concern for TB. Pulmonary following and may be considering bronch. (4) Hyperlipidemia Qualifiers: Hyperlipidemia type: unspecified Qualified Code(s): E78.5 - Hyperlipidemia , unspecified Is this a current diagnosis for this admission?: Yes Plan: Patient treatment resumed. (5) Pneumonia Qualifiers: Pneumonia type: due to unspecified organism Laterality: left Lung location: upper lobe of lung Qualified Code(s): J18.1 - Lobar pneumonia, unspecified organism Is this a current diagnosis for this admission?: Yes Plan: Patient on ceftriaxone and azithromycin for community acquired pneumonia. Leukocytosis not improved. Patient not able to get antibiotics until pic line is placed. (6) Thrombocytopenia Is this a current diagnosis for this admission?: Yes Plan: Patient does not thrombocytopenia. (7) Type 2 diabetes mellitus Qualifiers: Diabetes mellitus complication status: without complication Is this a current diagnosis for this admission?: Yes Plan: Will place patient on SSI. - Time Time Spent with patient: Less than 15 minutes Anticipated discharge: Home - Inpatient Certification Medical Necessity: Need for IV Antibiotics
[2017-03-06] MEDS: BACLOFEN 10 MG TABLET PO SCH (17:31)
[2017-03-06 18:57] LABS: HEMATOCRIT 32.1 % (36.0-47.0); HEMOGLOBIN 10.6 g/dL (12.0-15.5); HGB HCT DIFFERENCE -0.3; MEAN CORPUSCULAR HEMOGLOBIN 27.5 pg (27.0-33.4); MEAN CORPUSCULAR VOLUME 83 fl (80-97); RED BLOOD COUNT 3.85 10^6/uL (3.72-5.28); RED CELL DISTRIBUTION WIDTH 14.4 % (11.5-14.0)
[2017-03-06 19:29] LABS: BAND NEUTROPHILS % (MANUAL) 4 % (3-5); BASOPHILS % (MANUAL) 0 % (0-2); EOSINOPHILS % (MANUAL) 0 % (0-6); LYMPHOCYTES % (MANUAL) 10 % (13-45); TOTAL CELLS COUNTED 100
[2017-03-06 19:31] LABS: TOXIC GRANULATION 1+
[2017-03-06 19:32] LABS: ANISOCYTOSIS SLIGHT
[2017-03-06 19:33] LABS: POLYCHROMASIA SLIGHT
[2017-03-06 19:34] LABS: TOXIC VACUOLATION PRESENT
[2017-03-06 19:36] LABS: WHITE BLOOD COUNT 41.3 10^3/uL (4.0-10.5)
[2017-03-06] MEDS: IPRATROPIUM/ALBUTEROL 0.5-2.5 MG/3 ML AMPUL NEB PRN (21:01)
[2017-03-07] MEDS: IPRATROPIUM/ALBUTEROL 0.5-2.5 MG/3 ML AMPUL NEB SCH ×3 (00:04→17:00)
[2017-03-07] MEDS: KETOROLAC TROMETHAMINE INJ/PF 30 MG/1 ML SDV IV PRN ×2 (03:40→10:43)
[2017-03-07 08:51] LABS: HEMATOCRIT 30.2 % (36.0-47.0); HEMOGLOBIN 9.9 g/dL (12.0-15.5); HGB HCT DIFFERENCE -0.5; MEAN CORPUSCULAR HEMOGLOBIN 27.3 pg (27.0-33.4); MEAN CORPUSCULAR HGB CONC 32.8 g/dL (32.0-36.0); MEAN CORPUSCULAR VOLUME 83 fl (80-97); RED BLOOD COUNT 3.64 10^6/uL (3.72-5.28); RED CELL DISTRIBUTION WIDTH 14.6 % (11.5-14.0)
[2017-03-07 08:57] LABS: WHITE BLOOD COUNT 40.4 10^3/uL (4.0-10.5)
[2017-03-07] MEDS: ACETYLCYSTEINE 20% SOLN 800 MG/4 ML VIAL.NEB NEB SCH ×2 (08:57→20:41)
[2017-03-07 09:16] LABS: BAND NEUTROPHILS % (MANUAL) 11 % (3-5); BASOPHILS % (MANUAL) 0 % (0-2); EOSINOPHILS % (MANUAL) 0 % (0-6); LYMPHOCYTES % (MANUAL) 9 % (13-45); TOTAL CELLS COUNTED 100
[2017-03-07 09:17] LABS: HYPOCHROMASIA SLIGHT; PLATELET CLUMPS PRESENT; POLYCHROMASIA SLIGHT; TOXIC GRANULATION 1+
[2017-03-07] MEDS ORDERED: AZITHROMYCIN 250 MG TABLET PO SCH (10:00)
[2017-03-07] MEDS: CEFEPIME 2 GM/D5W RTU 2 GM/50 ML RTUPB IV SCH ×2 (10:42→22:12)
[2017-03-07] MEDS: FENOFIBRATE NANOCRYSTALLIZED 145 MG TABLET PO SCH (10:42)
[2017-03-07] MEDS: BACLOFEN 10 MG TABLET PO SCH ×2 (10:42→17:58)
[2017-03-07] MEDS: FAMOTIDINE INJ/PF 20 MG/2 ML SDV IV SCH ×2 (10:43→20:09)
--- NOTE | 2017-03-07 13:23 | RADIOLOGY REPORT (SQ) ---
EXAM DESCRIPTION: CHEST PA/LAT COMPLETED DATE/TIME: 03/07/2017 12:57 pm REASON FOR STUDY: increased WBC COMPARISON: 03/03/2017 EXAM PARAMETERS: NUMBER OF VIEWS: two views TECHNIQUE: Digital Frontal and Lateral radiographic views of the chest acquired. RADIATION DOSE: NA LIMITATIONS: none FINDINGS: LUNGS AND PLEURA: There is dense opacification a large portion of the left rosi thorax, sp aring only the apex. MEDIASTINUM AND HILAR STRUCTURES: No masses or contour abnormalities. HEART AND VASCULAR STRUCTURES: Heart normal size. No evidence for failure. BONES: No acute findings. HARDWARE: A PICC line is present on the left with the tip of the catheter in the superior vena cava. OTHER: No other significant finding. IMPRESSION: Increased opacification in the left hemithorax suggesting dense consolidation. TECHNICAL DOCUMENTATION: JOB ID: [id number] [employer]- All Rights Reserved
[2017-03-07] MEDS: MORPHINE SULFATE 10 MG/ML INJ IV PRN ×2 (13:39→17:58)
[2017-03-07] MEDS ORDERED: VANCOMYCIN HCL 0 MG in DEXTROSE 5%-WATER 250 ML IV NR (14:15)
[2017-03-07 14:39] LABS: PATH REVIEW PATHOLOGIST REVIEWED
[2017-03-07] MEDS ORDERED: GUAIFENESIN/CODEINE PHOS 100-10 MG/ 5 ML UDC PO PRN (17:21)
--- NOTE | 2017-03-07 18:57 | PDOC PROGRESS REPORT ---
Subjective Progress Note for:: 03/07/17 Subjective:: Patient presenting with hemoptysis and pneumonia. Currently on antibiotics. Patient IV not working. Patient agreed to picc line. Please not that patient is macedonian speaking but does appear to understand Divehi. Patient states that she does not feel better. She is having more pain now. She cough up bloody sputum. She does not feel well today. Reason For Visit: PNEUMONIA,AND HEMOPTYSIS Physical Exam Vital Signs: Temp Pulse Resp BP Pulse Ox 98.4 F 113 H 18 140/78 H 100 03/07/17 12:02 03/07/17 17:00 03/07/17 17:00 03/07/17 12:02 03/07/17 17:00 Intake & Output 03/06/17 03/07/17 03/08/17 06:59 06:59 06:59 Intake Total 1449 1071 237 Balance 1449 1071 237 Weight 76.4 kg 76.1 kg General appearance: PRESENT: mild distress, well-developed, well-nourished Head exam: PRESENT: normocephalic Eye exam: PRESENT: EOMI. ABSENT: scleral icterus Ear exam: PRESENT: normal external ear exam Mouth exam: PRESENT: moist Neck exam: ABSENT: carotid bruit, JVD, lymphadenopathy, thyromegaly Respiratory exam: PRESENT: decreased breath sounds - On left base. Breath sounds heard on the right.. ABSENT: rales, rhonchi, wheezes Cardiovascular exam: PRESENT: RRR. ABSENT: diastolic murmur, rubs, systolic murmur Pulses: PRESENT: normal dorsalis pedis pul Vascular exam: PRESENT: normal capillary refill GI/Abdominal exam: PRESENT: normal bowel sounds, soft. ABSENT: distended, guarding, mass, organolmegaly, rebound, tenderness Rectal exam: PRESENT: deferred Extremities exam: PRESENT: full ROM. ABSENT: calf tenderness, clubbing, pedal edema Neurological exam: PRESENT: alert, awake, oriented to person, oriented to place , oriented to time, oriented to situation, CN II-XII grossly intact. ABSENT: motor sensory deficit Psychiatric exam: PRESENT: appropriate affect, normal mood. ABSENT: homicidal ideation, suicidal ideation Skin exam: PRESENT: dry, intact, warm. ABSENT: cyanosis, rash Results Laboratory Results: 03/07/17 08:20 03/05/17 06:47 03/06/17 03/07/17 18:35 08:20 WBC 41.3 H* 40.4 H* RBC 3.85 3.64 L Hgb 10.6 L 9.9 L Hct 32.1 L 30.2 L MCV 83 83 MCH 27.5 27.3 MCHC 33.0 32.8 RDW 14.4 H 14.6 H Plt Count 462 H 440 Seg Neutrophils % Not Reportable Not Reportable Lymphocytes % Not Reportable Not Reportable Monocytes % Not Reportable Not Reportable Eosinophils % Not Reportable Not Reportable Basophils % Not Reportable Not Reportable Absolute Neutrophils Not Reportable Not Reportable Absolute Lymphocytes Not Reportable Not Reportable Absolute Monocytes Not Reportable Not Reportable Absolute Eosinophils Not Reportable Not Reportable Absolute Basophils Not Reportable Not Reportable 03/04/17 22:09 Sputum AFB Smear Concentration - Final 03/04/17 22:09 Sputum Acid Fast Bacilli Smear - Final 03/04/17 06:50 Clean Catch Midstream Legionella Urinary Antigen - Final Impressions: Chest/Abdomen CTA 03/03/17 12:33 IMPRESSION: 1. Extensive left upper lobe consolidation, apparent pneumonia. This should be followed to radiographic clearance. 2. Evidence of previous granulomatous disease. 3. No pulmonary embolus. Guidance Fluoroscopy 03/06/17 00:00 IMPRESSION: SUCCESSFUL PLACEMENT OF A 5 FR DUAL LUMEN 39 CM PICC IN THE LEFT BASILIC VEIN. Interventional Vascular Procedure 03/06/17 00:00 IMPRESSION: SUCCESSFUL PLACEMENT OF A 5 FR DUAL LUMEN 39 CM PICC IN THE LEFT BASILIC VEIN. PICC Line Insertion 03/06/17 00:00 IMPRESSION: SUCCESSFUL PLACEMENT OF A 5 FR DUAL LUMEN 39 CM PICC IN THE LEFT BASILIC VEIN. Chest X-Ray 03/07/17 00:00 IMPRESSION: Increased opacification in the left hemithorax suggesting dense consolidation. Assessment & Plan - Diagnosis (1) Pneumonia Qualifiers: Pneumonia type: due to unspecified organism Laterality: left Lung location: upper lobe of lung Qualified Code(s): J18.1 - Lobar pneumonia, unspecified organism Is this a current diagnosis for this admission?: Yes Plan: Worsening on chest XR. Patient with worsening leukocytosis. Patient antibiotics changed to cefepime, vancomcyin and levaquin. Plan is for bronch in the am. (2) Acute renal failure Qualifiers: Acute renal failure type: with acute renal cortical necrosis Qualified Code (s): N17.1 - Acute kidney failure with acute cortical necrosis Is this a current diagnosis for this admission?: Yes Plan: Most likely due to intravascular depletion. Creatinine was 1.89 on admission and down to 0.88. Resolved. (3) Granulomatous disease Is this a current diagnosis for this admission?: Yes Plan: Patient is being worked up for possible TB. Pulmonary consulted. Plan for bronch in the am. (4) Hemoptysis Is this a current diagnosis for this admission?: Yes Plan: Possibly secondary to coughing, but patient is being worked up for TB. There is also concern for TB. Plan is for bronch in the am. (5) Hyperlipidemia Qualifiers: Hyperlipidemia type: unspecified Qualified Code(s): E78.5 - Hyperlipidemia , unspecified Is this a current diagnosis for this admission?: Yes Plan: Patient treatment resumed. (6) Thrombocytopenia Is this a current diagnosis for this admission?: Yes Plan: Patient does not have thrombocytopenia. (7) Type 2 diabetes mellitus Qualifiers: Diabetes mellitus complication status: without complication Is this a current diagnosis for this admission?: Yes Plan: Continue SSI. - Time Time Spent with patient: 15-24 minutes Anticipated discharge: Home - Inpatient Certification Medical Necessity: Significant Comorbidiites Make Outpatient Treatment Too Risky , Need Close Monitoring Due to Risk of Patient Decompensation
[2017-03-07] MEDS: VANCOMYCIN HCL 750 MG in DEXTROSE 5%-WATER 250 ML IV SCH (19:25)
[2017-03-07] MEDS: OXYCODONE-ACETAMINOPHEN 5-325 MG TABLET PO PRN (20:09)
[2017-03-07] MEDS: PROMETHAZINE HCL 25 MG TABLET PO PRN (20:09)
[2017-03-07] MEDS: IPRATROPIUM/ALBUTEROL 0.5-2.5 MG/3 ML AMPUL NEB PRN (20:41)
[2017-03-07] MEDS: BENZONATATE 100 MG CAPSULE PO SCH (22:11)
[2017-03-08] MEDS: MORPHINE SULFATE 10 MG/ML INJ IV PRN ×2 (00:18→05:25)
[2017-03-08] MEDS: IPRATROPIUM/ALBUTEROL 0.5-2.5 MG/3 ML AMPUL NEB SCH ×3 (00:27→17:34)
[2017-03-08] MEDS: BENZONATATE 100 MG CAPSULE PO SCH ×2 (05:25→14:35)
--- NOTE | 2017-03-08 05:50 | PDOC PROGRESS REPORT ---
Subjective Progress Note for:: 03/08/17 Subjective:: chest pain better but persistant Reason For Visit: PNEUMONIA,AND HEMOPTYSIS Physical Exam Vital Signs: Temp Pulse Resp BP Pulse Ox 97.5 F 64 20 124/75 93 03/06/17 08:05 03/06/17 08:40 03/06/17 08:40 03/06/17 08:05 03/06/17 08:40 Intake & Output 03/05/17 03/06/17 03/07/17 06:59 06:59 06:59 Intake Total 2375 1449 Balance 2375 1449 Weight 74.2 kg 76.4 kg General appearance: PRESENT: cooperative, disheveled, well-developed, well- nourished. ABSENT: no acute distress, hard of hearing, mild distress, morbidly obese, obese, severe distress Head exam: PRESENT: atraumatic, normocephalic Eye exam: PRESENT: conjunctiva pale, EOMI. ABSENT: conjunctival injection, conjunctiva pink, nystagmus, periorbital swelling Mouth exam: PRESENT: dry mucosa, neck supple, tongue midline Neck exam: ABSENT: carotid bruit, JVD, lymphadenopathy, thyromegaly Respiratory exam: PRESENT: chest wall tenderness, crackles, decreased breath sounds, rales, rhonchi, unlabored. ABSENT: accessory muscle use, clear to auscultation namrata, prolonged expiratory phas, retraction, stridor, symmetrical, tachypnea Cardiovascular exam: PRESENT: RRR, +S1, +S2. ABSENT: irregular rhythm, rubs Pulses: PRESENT: normal radial pulses GI/Abdominal exam: PRESENT: normal bowel sounds, soft. ABSENT: distended, guarding, mass, organolmegaly, rebound, tenderness Extremities exam: ABSENT: calf tenderness, clubbing, joint swelling, pedal edema Musculoskeletal exam: PRESENT: ambulatory. ABSENT: deformity, dislocation Neurological exam: PRESENT: alert, awake Psychiatric exam: PRESENT: normal mood Skin exam: PRESENT: dry, warm Results Laboratory Results: 03/05/17 06:47 03/05/17 06:47 03/05/17 14:25 Carbonic Acid 1.17 HCO3/H2CO3 Ratio 20:1 ABG pH 7.40 ABG pCO2 38.8 ABG pO2 67.8 L ABG HCO3 23.5 ABG O2 Saturation 93.6 L ABG Base Excess -1.0 FiO2 2L Impressions: Chest X-Ray 03/03/17 11:58 IMPRESSION: Left upper lobe airspace disease. Differential includes pneumonia versus neoplasm. CT pending. Chest/Abdomen CTA 03/03/17 12:33 IMPRESSION: 1. Extensive left upper lobe consolidation, apparent pneumonia. This should be followed to radiographic clearance. 2. Evidence of previous granulomatous disease. 3. No pulmonary embolus. Assessment & Plan - Diagnosis (1) Acute renal failure Qualifiers: Acute renal failure type: with acute renal cortical necrosis Qualified Code (s): N17.1 - Acute kidney failure with acute cortical necrosis Is this a current diagnosis for this admission?: Yes Plan: improving (2) Granulomatous disease Is this a current diagnosis for this admission?: Yes (3) Hemoptysis Is this a current diagnosis for this admission?: Yes Plan: unchanged (4) Pneumonia Qualifiers: Pneumonia type: due to unspecified organism Laterality: left Lung location: upper lobe of lung Qualified Code(s): J18.1 - Lobar pneumonia, unspecified organism Is this a current diagnosis for this admission?: Yes Plan: rapidly rising WBC increasing infiltrate bronchoscopy +/- thoracentesis (5) Renal insufficiency Is this a current diagnosis for this admission?: No
--- NOTE | 2017-03-08 05:55 | PDOC PROGRESS REPORT ---
Subjective Progress Note for:: 03/07/17 Subjective:: still uncomfortable Reason For Visit: PNEUMONIA,AND HEMOPTYSIS Physical Exam Vital Signs: Temp Pulse Resp BP Pulse Ox 98.5 F 103 H 20 113/71 98 03/08/17 00:05 03/08/17 02:00 03/08/17 00:30 03/08/17 00:05 03/08/17 00:05 Intake & Output 03/06/17 03/07/17 03/08/17 06:59 06:59 06:59 Intake Total 1449 1071 1062 Balance 1449 1071 1062 Weight 76.4 kg 76.1 kg General appearance: PRESENT: cooperative, disheveled, mild distress, well- developed, well-nourished. ABSENT: no acute distress, morbidly obese, obese, severe distress Head exam: PRESENT: atraumatic, normocephalic Eye exam: PRESENT: conjunctiva pale, EOMI. ABSENT: conjunctival injection, conjunctiva pink, nystagmus, periorbital swelling, scleral icterus Mouth exam: PRESENT: dry mucosa, neck supple, tongue midline. ABSENT: laceration Neck exam: ABSENT: carotid bruit, JVD, lymphadenopathy, thyromegaly, tracheal deviation, tracheostomy Respiratory exam: PRESENT: crackles, prolonged expiratory phas, rhonchi, unlabored. ABSENT: accessory muscle use, chest wall tenderness, clear to auscultation namrata, decreased breath sounds, rales, retraction, stridor, symmetrical, tachypnea Cardiovascular exam: PRESENT: RRR, +S1, +S2. ABSENT: irregular rhythm, rubs Pulses: PRESENT: normal radial pulses GI/Abdominal exam: PRESENT: normal bowel sounds, soft. ABSENT: distended, guarding, mass, organolmegaly, rebound, tenderness Extremities exam: ABSENT: calf tenderness, clubbing, joint swelling Musculoskeletal exam: PRESENT: ambulatory. ABSENT: deformity, dislocation, tenderness Neurological exam: PRESENT: alert, awake Psychiatric exam: PRESENT: normal mood Skin exam: PRESENT: dry, warm Results Laboratory Results: 03/07/17 08:20 03/05/17 06:47 03/07/17 08:20 WBC 40.4 H* RBC 3.64 L Hgb 9.9 L Hct 30.2 L MCV 83 MCH 27.3 MCHC 32.8 RDW 14.6 H Plt Count 440 Seg Neutrophils % Not Reportable Lymphocytes % Not Reportable Monocytes % Not Reportable Eosinophils % Not Reportable Basophils % Not Reportable Absolute Neutrophils Not Reportable Absolute Lymphocytes Not Reportable Absolute Monocytes Not Reportable Absolute Eosinophils Not Reportable Absolute Basophils Not Reportable 03/04/17 22:09 Sputum AFB Smear Concentration - Final 03/04/17 22:09 Sputum Acid Fast Bacilli Smear - Final Impressions: Chest/Abdomen CTA 03/03/17 12:33 IMPRESSION: 1. Extensive left upper lobe consolidation, apparent pneumonia. This should be followed to radiographic clearance. 2. Evidence of previous granulomatous disease. 3. No pulmonary embolus. Guidance Fluoroscopy 03/06/17 00:00 IMPRESSION: SUCCESSFUL PLACEMENT OF A 5 FR DUAL LUMEN 39 CM PICC IN THE LEFT BASILIC VEIN. Interventional Vascular Procedure 03/06/17 00:00 IMPRESSION: SUCCESSFUL PLACEMENT OF A 5 FR DUAL LUMEN 39 CM PICC IN THE LEFT BASILIC VEIN. PICC Line Insertion 03/06/17 00:00 IMPRESSION: SUCCESSFUL PLACEMENT OF A 5 FR DUAL LUMEN 39 CM PICC IN THE LEFT BASILIC VEIN. Chest X-Ray 03/07/17 00:00 IMPRESSION: Increased opacification in the left hemithorax suggesting dense consolidation. Assessment & Plan - Diagnosis (1) Acute renal failure Qualifiers: Acute renal failure type: with acute renal cortical necrosis Qualified Code (s): N17.1 - Acute kidney failure with acute cortical necrosis Is this a current diagnosis for this admission?: No (2) Granulomatous disease Is this a current diagnosis for this admission?: Yes Plan: unchanged no AFB in stains (3) Hemoptysis Is this a current diagnosis for this admission?: Yes Plan: unchanged (4) Pneumonia Qualifiers: Pneumonia type: due to unspecified organism Laterality: left Lung location: upper lobe of lung Qualified Code(s): J18.1 - Lobar pneumonia, unspecified organism Is this a current diagnosis for this admission?: Yes Plan: rapidly rising WBC increasing infiltrate bronchoscopy +/- thoracentesis bronchoscopy 03/08/17 (5) Renal insufficiency Is this a current diagnosis for this admission?: No
--- NOTE | 2017-03-08 06:10 | PDOC CONSULTATION ---
Consultation Consult Date: 03/05/17 Attending physician:: LARRY WYNN Consult reason:: large pna History of Present Illness Admission Date/PCP: 03/03/17 16:39 History of Present Illness: ROLA URIBE is a 56 year old female (who does not speak Enclish)was brought in by her daughter(who provided all ibformation) today secondary to coughing for 10 days. Yesterday, the patient coughed up blood mixed with mucus. She estimated that the blood was approximately one half of a teaspoon. The blood was bright red. The patient has been feeling feverish with chills. She has not checked her temperature, however. She has felt that she may have lost a little bit of weight over the last couple of days but does not feel that she has had any any severe weight loss. 2 days ago the patient had one episode of vomiting and one episode of diarrhea. She has not had any additional episodes but she does have soft stools. She states that she is hungry and she is able to eat solid foods and drink liquids. Other significant review of systems is that she is getting up a lot at night to urinate. She has significant left sided anterior chest pain and left-sided posterior chest pain which is worse with deep inspiration and cough. The patient does not speak Turkish. She was born in [place]. The patient has been in contact with people with tuberculosis , but not recently.She returned from a trip to [facility] three weeks ago; after spending a month with her family.She was not aware of any sick contactsShe normally does not have SOB and very little ZARATE.She has smoked 1/2 ppd x45 yrs and was exsposed to large amounts of passive smoke as a child Past Medical History Cardiac Medical History: Reports: Hyperlipidema Pulmonary Medical History: Denies: Intubation, Respiratory Failure, Sleep Apnea EENT Medical History: Reports: None Neurological Medical History: Reports: None Endocrine Medical History: Reports: None Denies: Diabetes Mellitus Type 1, Diabetes Mellitus Type 2, Hyperthyroidism, Hypothyroidism, Obesity Renal/ Medical History: Denies: Nephrolithiasis Malignancy Medical History: Reports: None GI Medical History: Denies: Cirrhosis, Crohn's Disease, Hepatitis, Peptic Ulcer Disease, Ulcerative Colitis Musculoskeltal Medical History: Reports: None Denies: Fibromyalgia, Gout Skin Medical History: Reports: None Denies: Eczema, Psoriasis Psychiatric Medical History: Reports: None Denies: Alcohol Dependency, Attention Deficit Hyperactivity Disorder, Bipolar Disorder, Dementia, Depression, General Anxiety Disorder, Personality Disorder, Substance Abuse Traumatic Medical History: Reports: None, Pneumothorax Hematology: Denies: Bleeding Tendencies Infectious Medical History: Denies: Hepatitis B, Hepatitis C Past Surgical History Past Surgical History: Reports: Section - x1 Social History Information Source: Relative, [facility] Records Lives with: Family Smoking Status: Former Smoker Passive smoke exposure as: Both Frequency of Alcohol Use: Occasional Hx Recreational Drug Use: No Drugs: None Hx Prescription Drug Abuse: No Do you have pets?: No Have you had any respiratory illnesses as a child?: No Have you been exposed to any sick contacts recently?: No Have you had any recent respiratory illnesses?: No Have you travelled outside of [place] in the past 12 months?: Yes - Advance Directive Resuscitation Status: Full Code Family History Family History: CAD, Hyperlipidemia, Hypertension Parental Family History Reviewed: Yes Children Family History Reviewed: Yes Sibling(s) Family History Reviewed.: Yes Medication/Allergy Home Medications: Fenofibrate Nanocrystallized [Tricor 145 mg Tablet] 145 mg PO DAILY 03/04/17 Metformin HCl [Glucophage] 1,000 mg PO BID 03/04/17 Allergies/Adverse Reactions: No Known Allergies Allergy (Verified 03/03/17 11:30) Review of Systems Constitutional: PRESENT: anorexia, chills, fatigue, fever(s), weight loss. ABSENT: headache(s), night sweats Eyes: PRESENT: visual disturbances Ears: PRESENT: hearing changes Nose, Mouth, and Throat: ABSENT: mouth pain, sore throat, vertigo Respiratory: PRESENT: cough, dyspnea, hemoptysis Gastrointestinal: PRESENT: diarrhea, nausea. ABSENT: abdominal pain, bloating, coffee ground emesis, constipation, dysphagia, heartburn, hematemesis, hematochezia, melena, vomiting Genitourinary: ABSENT: difficulty urinating, dysuria, hematuria, nocturia Musculoskeletal: ABSENT: deformity, joint swelling Integumentary: PRESENT: pruritus, rash Neurological: ABSENT: abnormal gait, abnormal movements, abnormal speech, confusion, convulsions, focal weakness, frequent falls, lack of coordination, memory loss, numbness, paresthesias, syncope Psychiatric: ABSENT: hallucinations, homidical ideation, suicidal ideation Endocrine: ABSENT: cold intolerance, heat intolerance, menstrual abnormalities Hematologic/Lymphatic: ABSENT: easy bruising Physical Exam Vital Signs: Temp Pulse Resp BP Pulse Ox 99.0 F 142 H 22 H 145/98 H 93 03/05/17 13:54 03/05/17 14:00 03/05/17 13:54 03/05/17 13:54 03/05/17 13:54 Intake & Output 03/04/17 03/05/17 03/06/17 06:59 06:59 06:59 Intake Total 2648 2375 222 Output Total 300 Balance 2348 2375 222 Weight 72.5 kg 74.2 kg 74.2 kg General appearance: PRESENT: cooperative, disheveled, well-developed, well- nourished. ABSENT: no acute distress, mild distress, morbidly obese, obese, severe distress, thin Head exam: PRESENT: atraumatic, normocephalic Eye exam: PRESENT: conjunctiva pale, EOMI, PERRLA. ABSENT: conjunctival injection, conjunctiva pink, nystagmus, periorbital swelling, scleral icterus Mouth exam: PRESENT: dry mucosa, neck supple, tongue midline. ABSENT: laceration Neck exam: ABSENT: carotid bruit, JVD, lymphadenopathy, thyromegaly, tracheal deviation, tracheostomy Respiratory exam: PRESENT: chest wall tenderness, crackles, decreased breath sounds, rhonchi, unlabored. ABSENT: accessory muscle use, clear to auscultation namrata, prolonged expiratory phas, rales, retraction, stridor, symmetrical, tachypnea Cardiovascular exam: PRESENT: RRR, +S1, +S2. ABSENT: irregular rhythm, rubs Pulses: PRESENT: normal radial pulses GI/Abdominal exam: PRESENT: normal bowel sounds, soft. ABSENT: distended, guarding, mass, organolmegaly, rebound, tenderness Extremities exam: ABSENT: calf tenderness, clubbing, joint swelling Musculoskeletal exam: PRESENT: ambulatory. ABSENT: deformity, dislocation Neurological exam: PRESENT: alert, awake Skin exam: PRESENT: dry, warm Results Laboratory Results: 03/05/17 06:47 03/05/17 06:47 03/05/17 03/05/17 03/05/17 06:47 06:47 14:25 WBC 24.3 H RBC 3.81 Hgb 10.4 L Hct 31.7 L MCV 83 MCH 27.4 MCHC 32.9 RDW 14.3 H Plt Count 390 Seg Neutrophils % Not Reportable Lymphocytes % Not Reportable Monocytes % Not Reportable Eosinophils % Not Reportable Basophils % Not Reportable Absolute Neutrophils Not Reportable Absolute Lymphocytes Not Reportable Absolute Monocytes Not Reportable Absolute Eosinophils Not Reportable Absolute Basophils Not Reportable Carbonic Acid 1.17 HCO3/H2CO3 Ratio 20:1 ABG pH 7.40 ABG pCO2 38.8 ABG pO2 67.8 L ABG HCO3 23.5 ABG O2 Saturation 93.6 L ABG Base Excess -1.0 FiO2 2L Sodium 141.2 Potassium 4.2 Chloride 104 Carbon Dioxide 24 Anion Gap 13 BUN 14 Creatinine 0.88 Est GFR ( Amer) > 60 Est GFR (Non-Af Amer) > 60 Glucose 94 Calcium 8.5 Magnesium 1.9 Impressions: Chest X-Ray 03/03/17 11:58 IMPRESSION: Left upper lobe airspace disease. Differential includes pneumonia versus neoplasm. CT pending. Chest/Abdomen CTA 03/03/17 12:33 IMPRESSION: 1. Extensive left upper lobe consolidation, apparent pneumonia. This should be followed to radiographic clearance. 2. Evidence of previous granulomatous disease. 3. No pulmonary embolus. Assessment & Plan - Diagnosis (1) Acute renal failure Qualifiers: Acute renal failure type: with acute renal cortical necrosis Qualified Code (s): N17.1 - Acute kidney failure with acute cortical necrosis Is this a current diagnosis for this admission?: No Plan: judicious hydration (2) Hemoptysis Is this a current diagnosis for this admission?: Yes Plan: ppd+sputum AFB stain and culture; (3) Pneumonia Qualifiers: Pneumonia type: due to unspecified organism Laterality: left Lung location: upper lobe of lung Qualified Code(s): J18.1 - Lobar pneumonia, unspecified organism Is this a current diagnosis for this admission?: Yes Plan: sputum g stain c&s;stools for ova and parasited
[2017-03-08] MEDS: VANCOMYCIN HCL 750 MG in DEXTROSE 5%-WATER 250 ML IV SCH ×2 (06:13→18:38)
[2017-03-08 06:54] LABS: HEMATOCRIT 29.3 % (36.0-47.0); HEMOGLOBIN 9.7 g/dL (12.0-15.5); HGB HCT DIFFERENCE -0.2; MEAN CORPUSCULAR HEMOGLOBIN 27.2 pg (27.0-33.4); MEAN CORPUSCULAR HGB CONC 32.9 g/dL (32.0-36.0); MEAN CORPUSCULAR VOLUME 83 fl (80-97); RED BLOOD COUNT 3.55 10^6/uL (3.72-5.28); RED CELL DISTRIBUTION WIDTH 14.3 % (11.5-14.0)
[2017-03-08 06:59] LABS: PROTHROMBIN TIME 15.7 SEC (11.4-15.4)
[2017-03-08] MEDS ORDERED: RINGERS SOLUTION,LACTATED 1,000 ML IV PRN (07:00)
[2017-03-08 07:05] LABS: ANION GAP 12 (5-19); BLOOD UREA NITROGEN 12 mg/dL (7-20); CARBON DIOXIDE 29 mmol/L (22-30); CHLORIDE 100 mmol/L (98-107); CREATININE RESULT 0.66 mg/dL (0.52-1.25); GLUCOSE 87 mg/dL (75-110); POTASSIUM 4.5 mmol/L (3.6-5.0); SODIUM 140.8 mmol/L (137-145)
[2017-03-08 07:35] LABS: BAND NEUTROPHILS % (MANUAL) 4 % (3-5); BASOPHILS % (MANUAL) 0 % (0-2); EOSINOPHILS % (MANUAL) 0 % (0-6); LYMPHOCYTES % (MANUAL) 8 % (13-45); PLATELET CLUMPS PRESENT; TOTAL CELLS COUNTED 97; TOXIC GRANULATION 1+; TOXIC VACUOLATION PRESENT
[2017-03-08 07:36] LABS: HYPOCHROMASIA SLIGHT; POLYCHROMASIA SLIGHT
[2017-03-08 07:40] LABS: WHITE BLOOD COUNT 36.4 10^3/uL (4.0-10.5)
--- NOTE | 2017-03-08 07:55 | EKG REPORT ---
SEVERITY:- BORDERLINE ECG - SINUS TACHYCARDIA BORDERLINE T ABNORMALITIES, ANTERIOR LEADS : Confirmed by: Go Vazquez MD 08-Mar-2017 07:54:46
[2017-03-08] MEDS: OXYCODONE-ACETAMINOPHEN 5-325 MG TABLET PO PRN ×3 (08:07→18:38)
[2017-03-08] MEDS: ACETYLCYSTEINE 20% SOLN 800 MG/4 ML VIAL.NEB NEB SCH ×2 (08:24→20:13)
[2017-03-08] MEDS: FAMOTIDINE INJ/PF 20 MG/2 ML SDV IV SCH (09:37)
[2017-03-08] MEDS: FENOFIBRATE NANOCRYSTALLIZED 145 MG TABLET PO SCH (09:37)
[2017-03-08] MEDS: BACLOFEN 10 MG TABLET PO SCH ×2 (09:37→18:37)
[2017-03-08] MEDS ORDERED: FENTANYL CITRATE INJ/PF 100 MCG/2 ML AMPUL ONE (09:38)
[2017-03-08] MEDS ORDERED: MIDAZOLAM 2 MG/2 ML INJ ONE (09:38)
[2017-03-08] MEDS ORDERED: HYDROMORPHONE HCL INJ/PF 2 MG/ML AMPULE ONE (09:38)
[2017-03-08] MEDS ORDERED: PROPOFOL INJ 200 MG/20 ML VIAL IV ONE (09:38)
[2017-03-08] MEDS: CEFEPIME 2 GM/D5W RTU 2 GM/50 ML RTUPB IV SCH (09:41)
[2017-03-08] MEDS ORDERED: EPINEPHRINE INJ 1 MG/10 ML DISP.SYRIN ONE (09:48)
[2017-03-08] MEDS ORDERED: LIDOCAINE 2% INJ (20 MG/ML) 20 ML MDV ONE (09:48)
[2017-03-08] MEDS ORDERED: LEVOFLOXACIN 750 MG/D5W RTU 750 MG/150 ML RTUPB IV SCH (10:00)
[2017-03-08] MEDS ORDERED: FENTANYL CITRATE INJ/PF 100 MCG/2 ML AMPUL IV PRN ×3 (11:14)
[2017-03-08] MEDS ORDERED: MORPHINE SULFATE 10 MG/ML INJ IV PRN (11:14)
[2017-03-08] MEDS ORDERED: DIPHENHYDRAMINE HCL 50 MG/ML VIAL IV PRN (11:14)
--- NOTE | 2017-03-08 11:37 | Operative Report ---
Operative Report DATE OF SURGERY: 03/08/17 Operative Report: 56-year-old female with left upper lobe consolidation and trace hemoptysis patient was kept n.p.o. for approximately 14 hours prior to procedure him to the preop area and the procedure and anesthesia were reviewed all questions were answered consults was signed. Patient was then taken to the bronchoscopy suite where she was intubated with a #8 ET tube after rapid induction per anesthesia. Then using a T size a lipid bronchoscope her tracheobronchial tree was explored and no abnormalities of the distal trachea. There is no splaying of the eloise no abnormalities of the right mainstem bronchus, right upper lobe , right bronchus intermedius, right middle lobe, and right lower lobe were noted. There were no abnormalities of the left mainstem bronchus, minimal amount of swelling to the subsegments of the left upper lobe which did not involve the lingula. There were no abnormalities noted in the left lower lobe. Multiple lavages were taken of the left upper lobe which is somewhat purulent lavage fluid. And 3 transbronchial biopsies were taken of the left upper lobe. Patient tolerated procedure well postprocedure SaO2 was 99%. Postprocedure chest x-ray is in progress at this time. Tissue and lavage fluid will be sent to the laboratory for appropriate cultures and studies PREOPERATIVE DIAGNOSIS: Left upper lobe opacity POSTOPERATIVE DIAGNOSIS: Same OPERATION: Fiberoptic bronchoscopy with bronchoalveolar lavage and transbronchial biopsy SURGEON: REUBEN JONES ANESTHESIA: GA TISSUE REMOVED OR ALTERED: Bronchoalveolar lavage left upper lobe. Transbronchial biopsies left upper lobe COMPLICATIONS: none ESTIMATED BLOOD LOSS: 0 ml
--- NOTE | 2017-03-08 11:59 | RADIOLOGY REPORT (SQ) ---
EXAM DESCRIPTION: CHEST SINGLE VIEW COMPLETED DATE/TIME: 03/08/2017 11:41 am REASON FOR STUDY: S/P Lung Biopsy COMPARISON: 03/07/2017 EXAM PARAMETERS: NUMBER OF VIEWS: One view. TECHNIQUE: Single frontal radiographic view of the chest acquired. RADIATION DOSE: NA LIMITATIONS: None. FINDINGS: LUNGS AND PLEURA: Once again there is marked opacification of most of the left lung, spari ng the apex. There does not appear to be a significant interval change. MEDIASTINUM AND HILAR STRUCTURES: No masses. Contour normal. HEART AND VASCULAR STRUCTURES: Heart normal in size. Normal vasculature. BONES: No acute findings. HARDWARE: PICC line on the left with the catheter in the superior vena cava. OTHER: No other significant finding. IMPRESSION: Marked opacification in the left lung suggesting consolidation. Little interval change. TECHNICAL DOCUMENTATION: JOB ID: [id number] [employer]- All Rights Reserved
[2017-03-08 13:26] LABS: FLUID TYPE BRONCHIAL LAVAGE; STAIN REACTIVITY CHECK ACCEPTABLE
[2017-03-08 13:28] LABS: FLUID APPEARANCE CLOUDY
[2017-03-08 13:29] LABS: FLUID RBC DILUENT USED SALINE; FLUID RBC DILUTION FACTOR 3; FLUID RBC SIDE 1 74; FLUID RBC SIDE 2 60; TOTAL RBC SQUARES COUNTED FLD 225
[2017-03-08 14:13] LABS: TOTAL PROTEIN 6.2 g/dL (6.3-8.2)
[2017-03-08] MEDS ORDERED: SUCCINYLCHOLINE CHLORIDE INJ 200 MG/10 ML VIAL ONE (14:15)
[2017-03-08] MEDS ORDERED: METOCLOPRAMIDE HCL INJ/PF 10 MG/2 ML SDV ONE (14:15)
[2017-03-08] MEDS ORDERED: DEXAMETHASONE SOD PHOSPHATE INJ 4 MG/1 ML VIAL ONE (14:15)
[2017-03-08] MEDS ORDERED: LIDOCAINE 2% INJ-PF (20 MG/ML) 2 ML AMPUL ONE (14:15)
[2017-03-08] MEDS ORDERED: ONDANSETRON HCL INJ/PF 4 MG/2 ML SDV ONE (14:15)
[2017-03-08 15:12] LABS: PATH REVIEW PATHOLOGIST REVIEWED
--- NOTE | 2017-03-08 17:02 | RADIOLOGY REPORT (SQ) ---
EXAM DESCRIPTION: CHEST SINGLE VIEW COMPLETED DATE/TIME: 03/08/2017 4:43 pm REASON FOR STUDY: S/P THORACENTESIS COMPARISON: Chest film 03/07/2017, 03/08/2017 Ultrasound-guided thoracentesis 03/08/2017 EXAM PARAMETERS: NUMBER OF VIEWS: One view. TECHNIQUE: Single frontal radiographic view of the chest acquired. RADIATION DOSE: NA LIMITATIONS: None. FINDINGS: LUNGS AND PLEURA: This study is immediately post left thoracentesis over the posterior mid left chest. Patient had a loculated pleural effusion, and only 50 mL of fluid was aspirated under u ltrasound guidance. The current film shows no pneumothorax, and partial clearing of the opacity over the left hilum, representing aspirated pocket of pleural fluid. Remainder of the left hemithorax is near completely opacified with pleural fluid and pneumonia with a ir bronchograms, sparing the left lung apex. Right lung clear. No right pleural effusion or pneumothorax. MEDIASTINUM AND HILAR STRUCTURES: No masses. Contour normal. HEART AND VASCULAR STRUCTURES: No gross cardiomegaly BONES: No acute findings. HARDWARE: Left PICC line tip superior vena cava OTHER: No other significant finding. IMPRESSION: Post thoracentesis with slight decrease in left pleural effusion. No pneumothorax Persistent dense consolidation throughout the left lower lobe and inferior aspect left upper lobe wit h loculated left pleural effusion TECHNICAL DOCUMENTATION: JOB ID: [id number] [employer]- All Rights Reserved
--- NOTE | 2017-03-08 17:04 | RADIOLOGY REPORT (SQ) ---
EXAM DESCRIPTION: U/S THORACENTESIS WITH IMAGING COMPLETED DATE/TIME: 03/08/2017 11:43 am REASON FOR STUDY: Massive pneumonia-empyema? COMPARISON: Multiple previous chest films 03/03/2017 through 03/08/2017 CT chest 03/03/2017 LIMITATIONS: None. PROCEDURE: Procedure, risks, benefit, and alternative explained to patient who then gave written con sent. The posterior left chest wall was marked using ultrasound guidance. A time-out was called for correct marking verification. Chest prepped and draped using sterile technique. Local anesthesia ac hieved using 5.5 ml of 1% lidocaine injection. A 6fr Safe-T- Centesis set was introduced into the po sterior left pleural space. Fluid was aspirated. The catheter was removed and the entry site was co diallo with sterile bandage. No immediate complications noted. Loculated pleural fluid. We were only able to aspirate about 50 mL of fluid was sent for testing Images acquired during the procedure were stored on PACS. FINDINGS: ENTRY SITE: Left posterior mid chest FLUID VOLUME: 50 mL FLUID ANALYSIS: Clear yellow fluid sent for testing OTHER: Findings discussed with Dr. Ames IMPRESSION: DIAGNOSTIC THORACENTESIS USING ULTRASOUND GUIDANCE. COMMENT: Patient medication list reviewed: Yes- Quality ID# [id number]:Eligible professional attests to doc umenting in the medical record they obtained, updated, or reviewed the patient's current medications. Quality ID #[id number]: Final reports for procedures using fluoroscopy that document radiation exposure aleksey ronnie, or exposure time and number of fluorographic images (if radiation exposure indices are not avail able) TECHNICAL DOCUMENTATION: JOB ID: [id number] [employer]- All Rights Reserved
[2017-03-08 17:49] LABS: STAIN REACTIVITY CHECK ACCEPTABLE
[2017-03-08 17:50] LABS: FLUID TYPE PLEURAL
[2017-03-08 17:51] LABS: FLUID APPEARANCE SLIGHTLY HAZY; FLUID RBC DILUENT USED NONE USED; FLUID RBC DILUTION FACTOR 1
[2017-03-08 17:52] LABS: FLUID RBC SIDE 1 111; FLUID RBC SIDE 2 117; TOTAL RBC SQUARES COUNTED FLD 225
--- NOTE | 2017-03-08 18:49 | PDOC TRANSFER SUMMARY ---
General Admission Date/PCP: 03/03/17 16:39 Resuscitation Status: Full Code - Transfer Diagnosis (1) Pneumonia Is this a current diagnosis for this admission?: Yes (2) Acute renal failure Is this a current diagnosis for this admission?: No (3) Granulomatous disease Is this a current diagnosis for this admission?: Yes (4) Hemoptysis Is this a current diagnosis for this admission?: Yes (5) Hyperlipidemia Is this a current diagnosis for this admission?: Yes (6) Thrombocytopenia Is this a current diagnosis for this admission?: Yes (7) Type 2 diabetes mellitus Is this a current diagnosis for this admission?: Yes - Transfer Medications Home Medications: Fenofibrate Nanocrystallized [Tricor 145 mg Tablet] 145 mg PO DAILY 03/04/17 Metformin HCl [Glucophage] 1,000 mg PO BID 03/04/17 Transfer Medications: Current Medications Acetaminophen (Tylenol 325 Mg Tablet) 325 mg PO Q4HP PRN PRN Reason: PAIN OR FEVER Stop: 04/02/17 17:12 Last Admin: 03/06/17 03:59 Dose: 325 mg Acetylcysteine (Mucomist 20% Soln 800 Mg/4 Ml) 600 mg NEB RTBID SAYRA Stop: 04/04/17 19:59 Last Admin: 03/08/17 08:24 Dose: 600 mg Al Hydrox/Mg Hydrox/Simethicone (Maalox Plus Susp 30 Udcup) 15 ml PO Q6HP PRN PRN Reason: INDIGESTION Stop: 04/02/17 17:12 Albuterol/Ipratropium (Duoneb 3 Ml Ampul) 3 ml NEB RTQ3HP PRN PRN Reason: SHORTNESS OF BREATH Stop: 04/02/17 17:12 Last Admin: 03/07/17 20:41 Dose: 3 ml Albuterol/Ipratropium (Duoneb 3 Ml Ampul) 3 ml NEB RTQ8 SAYRA Stop: 04/04/17 15:59 Last Admin: 03/08/17 17:34 Dose: 3 ml Baclofen (Baclofen 10 Mg Tablet) 5 mg PO BID [facility] Stop: 04/05/17 17:59 Last Admin: 03/08/17 09:37 Dose: 5 mg Benzonatate (Tessalon Perles 100 Mg Capsule) 200 mg PO Q8 SAYRA Stop: 04/06/17 21:59 Last Admin: 03/08/17 14:35 Dose: 200 mg Famotidine (Pepcid Inj/Pf 20 Mg/2 Ml Sdv) 20 mg IV Q12 SAYRA Stop: 04/03/17 09:59 Last Admin: 03/08/17 09:37 Dose: 20 mg Fenofibrate (Tricor 145 Mg Tablet) 145 mg PO DAILY SAYRA Stop: 04/06/17 09:59 Last Admin: 03/08/17 09:37 Dose: 145 mg Guaifenesin/Codeine Phosphate (Robitussin-Ac Liquid 5 Ml Udcup) 10 ml PO QIDP PRN Stop: 04/03/17 11:04 Cefepime HCl (Maxipime Rtu 2 Gm-D5w 50 Ml Premix Bag) 2 gm in 50 mls @ 100 mls/ hr IV Q12 SAYRA Stop: 03/14/17 09:59 Last Admin: 03/08/17 09:41 Dose: 50 ml Levofloxacin/Dextrose (Levaquin Rtu 750 Mg/D5w 150 Ml Premix) 750 mg in 150 mls @ 100 mls/hr IV DAILY SAYRA Stop: 03/15/17 09:59 Last Admin: 03/08/17 09:36 Dose: 150 ml Vancomycin HCl 750 mg/ (Dextrose) 250 mls @ 166.667 mls/hr IV Q12A SAYRA Stop: 03/14/17 17:59 Last Admin: 03/08/17 06:13 Dose: 750 mg Morphine Sulfate (Morphine 10 Mg/Ml Inj) 4 mg IV Q4HP PRN Stop: 03/14/17 12:49 Last Admin: 03/08/17 05:25 Dose: 4 mg Oxycodone/Acetaminophen (Percocet 5-325 Mg Tablet) 1 tab PO Q4HP PRN PRN Reason: PAIN Stop: 03/15/17 12:28 Last Admin: 03/08/17 14:35 Dose: 1 tab Promethazine HCl (Phenergan 25 Mg Tablet) 12.5 mg PO Q4HP PRN Stop: 04/02/17 17:24 Last Admin: 03/07/17 20:09 Dose: 12.5 mg Temazepam (Restoril 15 Mg Capsule) 15 mg PO HSP PRN PRN Reason: SLEEP OR INSOMNIA Stop: 03/10/17 17:12 - Allergies Allergies/Adverse Reactions: No Known Allergies Allergy (Verified 03/03/17 11:30) - Diet/Activity Discharge Diet: As Tolerated Hospital Course Hospital Course: Patient is a 56-year-old Mongolian-speaking female with history of diabetes and hyperlipidemia who presented with a 10 day complaint of coughing and not feeling well. Patient was also having phlegm that is blood-tinged. Patient was initially started on treatment for community-acquired pneumonia with ceftriaxone and azithromycin. Patient white count was initially 28,000 and was trending down however trended back up to 40,000. Patient antibiotic coverage was broadened to vancomycin cefepime and Levaquin. Patient underwent a bronchoscopy on 03/08/2017 which was unimpressive bronchial washings were sent and a thoracentesis at which time only only 50mL of yellow fluid was removed. Patient continues with cough and worsening leukocytosis. TB was ruled out. Patient complains of left sided pain only relieved by morphine. Patient is mainitaining her sats on 2.5L NC. She is not in any respiratory distress. Dr. Ames the rejogger is concerned for a complicated pneumonia or empyema. Unfortunately we on unable to treat patients with empyema. [facility] was called and cardiothoracic surgeon consulted for further evaluation and possible VATS. After discussing the case with Dr. Jorge, patient was accepted for transfer for further evaluation and treatment for her complicated pneumonia. Physical Exam Vital Signs: Temp Pulse Resp BP Pulse Ox 98.3 F 95 16 120/67 99 03/08/17 16:00 03/08/17 16:00 03/08/17 16:00 03/08/17 16:00 03/08/17 16:00 Intake & Output 03/07/17 03/08/17 03/09/17 06:59 06:59 06:59 Intake Total 1071 1447 450 Output Total 5 Balance 1071 1447 445 Weight 76.1 kg 75.2 kg General appearance: PRESENT: mild distress Head exam: PRESENT: atraumatic, normocephalic Eye exam: PRESENT: EOMI. ABSENT: scleral icterus Ear exam: PRESENT: normal external ear exam Mouth exam: PRESENT: moist Neck exam: ABSENT: carotid bruit, JVD, lymphadenopathy, thyromegaly Respiratory exam: PRESENT: clear to auscultation [place] - On the right side. No breath sounds heard on the left side.. ABSENT: rales, rhonchi, wheezes Cardiovascular exam: PRESENT: RRR. ABSENT: diastolic murmur, rubs, systolic murmur Pulses: PRESENT: normal dorsalis pedis pul Vascular exam: PRESENT: normal capillary refill GI/Abdominal exam: PRESENT: normal bowel sounds, soft. ABSENT: distended, guarding, mass, organolmegaly, rebound, tenderness Rectal exam: PRESENT: deferred Extremities exam: PRESENT: full ROM. ABSENT: calf tenderness, clubbing, pedal edema Neurological exam: PRESENT: alert, awake, oriented to person, oriented to place , oriented to time, oriented to situation, CN II-XII grossly intact. ABSENT: motor sensory deficit Psychiatric exam: PRESENT: appropriate affect, normal mood. ABSENT: homicidal ideation, suicidal ideation Skin exam: PRESENT: dry, intact, warm. ABSENT: cyanosis, rash Results Laboratory Results: 03/08/17 05:55 03/08/17 13:40 03/08/17 03/08/17 03/08/17 05:55 05:55 10:53 WBC 36.4 H* RBC 3.55 L Hgb 9.7 L Hct 29.3 L MCV 83 MCH 27.2 MCHC 32.9 RDW 14.3 H Plt Count 455 H Seg Neutrophils % Not Reportable Lymphocytes % Not Reportable Monocytes % Not Reportable Eosinophils % Not Reportable Basophils % Not Reportable Absolute Neutrophils Not Reportable Absolute Lymphocytes Not Reportable Absolute Monocytes Not Reportable Absolute Eosinophils Not Reportable Absolute Basophils Not Reportable Sodium 140.8 Potassium 4.5 Chloride 100 Carbon Dioxide 29 Anion Gap 12 BUN 12 Creatinine 0.66 Est GFR ( Amer) > 60 Est GFR (Non-Af Amer) > 60 Glucose 87 Calcium 8.0 L Total Protein Fluid Type BRONCHIAL LAVAGE Fluid Source Fluid Color STRAW Fluid Appearance CLOUDY Fluid Viscosity SLIGHTLY VISCOUS Fluid WBC 3630 Fluid RBC 223 03/08/17 03/08/17 13:40 16:30 WBC RBC Hgb Hct MCV MCH MCHC RDW Plt Count Seg Neutrophils % Lymphocytes % Monocytes % Eosinophils % Basophils % Absolute Neutrophils Absolute Lymphocytes Absolute Monocytes Absolute Eosinophils Absolute Basophils Sodium Potassium Chloride Carbon Dioxide Anion Gap BUN Creatinine Est GFR ( Amer) Est GFR (Non-Af Amer) Glucose 154 H Calcium Total Protein 6.2 L Fluid Type PLEURAL Fluid Source LUNG Fluid Color LIGHT YELLOW Fluid Appearance SLIGHTLY HAZY Fluid Viscosity SLIGHTLY VISCOUS Fluid WBC 1397 Fluid RBC 126 11/26/17 00:01 Sputum Gram Stain - Final 03/04/17 00:01 Sputum Sputum Culture - Final Streptococcus Pneumoniae Normal Charis 03/06/17 06:20 Sputum AFB Smear Concentration - Final 03/06/17 06:20 Sputum Acid Fast Bacilli Smear - Final 03/05/17 17:14 Sputum AFB Smear Concentration - Final 03/05/17 17:14 Sputum Acid Fast Bacilli Smear - Final Impressions: Chest/Abdomen CTA 03/03/17 12:33 IMPRESSION: 1. Extensive left upper lobe consolidation, apparent pneumonia. This should be followed to radiographic clearance. 2. Evidence of previous granulomatous disease. 3. No pulmonary embolus. Guidance Fluoroscopy 03/06/17 00:00 IMPRESSION: SUCCESSFUL PLACEMENT OF A 5 FR DUAL LUMEN 39 CM PICC IN THE LEFT BASILIC VEIN. Interventional Vascular Procedure 03/06/17 00:00 IMPRESSION: SUCCESSFUL PLACEMENT OF A 5 FR DUAL LUMEN 39 CM PICC IN THE LEFT BASILIC VEIN. PICC Line Insertion 03/06/17 00:00 IMPRESSION: SUCCESSFUL PLACEMENT OF A 5 FR DUAL LUMEN 39 CM PICC IN THE LEFT BASILIC VEIN. Chest X-Ray 03/08/17 00:00 IMPRESSION: Post thoracentesis with slight decrease in left pleural effusion. No pneumothorax Persistent dense consolidation throughout the left lower lobe and inferior aspect left upper lobe with loculated left pleural effusion Thoracentesis Ultrasound 03/08/17 11:38 IMPRESSION: DIAGNOSTIC THORACENTESIS USING ULTRASOUND GUIDANCE. Plan Discharge Plan: Patient is being transferred to [facility] for further evaluation evaluation by cardiothoracic surgeon for her complicated pneumonia. Time Spent: Greater than 30 Minutes
--- NOTE | 2017-03-08 20:06 | RADIOLOGY REPORT (SQ) ---
EXAM DESCRIPTION: CHEST SINGLE VIEW COMPLETED DATE/TIME: 03/08/2017 7:08 pm REASON FOR STUDY: S/P THORACENTESIS COMPARISON: 03/08/2017 EXAM PARAMETERS: NUMBER OF VIEWS: One view. TECHNIQUE: Single frontal radiographic view of the chest acquired. RADIATION DOSE: NA LIMITATIONS: None. FINDINGS: LUNGS AND PLEURA: Stable left-sided airspace disease. Right lung is clear. No pneumothor ax. MEDIASTINUM AND HILAR STRUCTURES: Stable in size and contour. HEART AND VASCULAR STRUCTURES: Heart stable in size. Normal vasculature. BONES: No acute findings. HARDWARE: Stable position left-sided PICC. OTHER: No other significant finding. IMPRESSION: STABLE LEFT-SIDED AIRSPACE DISEASE. NO PNEUMOTHORAX FOLLOWING THORACENTESIS. TECHNICAL DOCUMENTATION: JOB ID: [id number]- All Rights Reserved
[2017-03-08 20:27] VITALS: BP 133/78
== END 2017-03-08 20:58 | disposition short-term general hospital (02) | DRG 167 ==
LOC: ER 11:14 → EH 16:39 → 5 18:21 → 3S 20:23
PROVIDERS: ADMIT Internal Medicine; ATTEND Internal Medicine
PROC: 02HV33Z Insertion of Infusion Device into Superior Vena Cava, Percutaneous Approach (ICD-10-PCS; 2017-03-06)
PROC: B5181ZA Fluoroscopy of Superior Vena Cava using Low Osmolar Contrast, Guidance (ICD-10-PCS; 2017-03-06)
PROC: B548ZZA Ultrasonography of Superior Vena Cava, Guidance (ICD-10-PCS; 2017-03-06)
PROC: 0W9B3ZX Drainage of Left Pleural Cavity, Percutaneous Approach, Diagnostic (ICD-10-PCS; 2017-03-08)
PROC: 0B9G8ZX Drainage of Left Upper Lung Lobe, Via Natural or Artificial Opening Endoscopic, Diagnostic (ICD-10-PCS; principal; 2017-03-08 10:15)
PROC: 0BBG8ZX Excision of Left Upper Lung Lobe, Via Natural or Artificial Opening Endoscopic, Diagnostic (ICD-10-PCS; 2017-03-08 10:15)
DX: J13 Pneumonia due to Streptococcus pneumoniae (principal); N17.9 Acute kidney failure, unspecified; R04.2 Hemoptysis; D69.6 Thrombocytopenia, unspecified; E78.5 Hyperlipidemia, unspecified; E11.9 Type 2 diabetes mellitus without complications; D71 Functional disorders of polymorphonuclear neutrophils; Z79.84 Long term (current) use of oral hypoglycemic drugs; Z79.899 Other long term (current) drug therapy; Z87.891 Personal history of nicotine dependence
CPT/HCPCS: 31624; 31628; 32555; 36415; 36569; 71010; 71020; 71275; 76937; 77001; 80048; 80053; 82803; 82945; 82947; 83615; 83735; 84100; 84155; 84157; 85025; 85610; 85730; 86738; 87015; 87040; 87070; 87075; 87077; 87101; 87116; 87205; 87206; 87486; 88305; 88341; 88342; 89050; 93005; 93010; 94640; 94667; 94668; 94799; 96361; 96365; 99285; J0171; J0330; J0456; J0692; J0696; J1100; J1170; J1642; J1885; J1956; J2250; J2270; J2405; J2704; J2765; J3010; J3370; J3490; J7030; J7060; J7120; J7620; S0028